=== PATIENT | female | born 1970 | race Caucasian/White ===

== ENCOUNTER 2019-05-27 12:44 | Outpatient (RCR) | payer MEDICARE, SELFPAY ==
[2019-05-27 13:10] LABS: Basophils Absolute Auto 0.1 K/mm3 (0.0-0.1); Basophils Percent Auto 0.7 % (0.2-1.2); Eosinophils Absolute Auto 0.4 K/mm3 (0-0.3); Eosinophils Percent Auto 3.1 % (0-4.4); Hematocrit 38.8 % (37.0-47.0); Hemoglobin 12.4 g/dL (12.0-15.0); Immature Granulocyte Absolute 0.03 K/mm3 (0.00-0.031); Immature Granulocyte Percent A 0.3 % (0-0.5); Lymphocytes Absolute Auto 5.64 K/mm3 (0.9-3.2); Lymphocytes Percent Auto 49.6 % (18.3-44.2); Mean Corpuscular Hemoglobin 32.6 pg (26-34); Mean Corpuscular Volume 102.1 fl (80-100); Mean Platelet Volume 9.8 fl (7.4-10.4); Monocytes Absolute Auto 0.7 K/mm3 (0.1-0.6); Neutrophils Absolute Auto 4.6 K/mm3 (1.3-6.7); Neutrophils Percent Auto 40.3 % (45.5-73.1); Platelet Count Result 413 k/mm3 (150-375); Red Cell Distribution Width 13.2 % (11.5-14.5); White Blood Count 11.4 K/mm3 (4.5-10.0)
== END 2019-08-25 23:59 | disposition home or self-care (01) ==
LOC: ANHLAB 12:44
PROVIDERS: PCP Family Medicine; Visit Provider Internal Medicine Medical Oncology
DX: D59.1 Other autoimmune hemolytic anemias (principal)
CPT/HCPCS: 36415; 85025

== ENCOUNTER 2020-08-01 10:36 | Outpatient (CLI) | payer MEDICARE, SELFPAY ==
[2020-08-01 11:15] LABS: Basophils Absolute Auto 0.1 K/mm3 (0.0-0.1); Basophils Percent Auto 0.7 % (0.2-1.2); Eosinophils Absolute Auto 0.6 K/mm3 (0-0.3); Eosinophils Percent Auto 5.6 % (0-4.4); Hematocrit 38.9 % (37.0-47.0); Hemoglobin 12.3 g/dL (12.0-15.0); Immature Granulocyte Absolute 0.03 K/mm3 (0.00-0.031); Immature Granulocyte Percent A 0.3 % (0-0.5); Lymphocytes Absolute Auto 4.51 K/mm3 (0.9-3.2); Lymphocytes Percent Auto 41.8 % (18.3-44.2); Mean Corpuscular HGB Conc 31.6 g/dl (32-36); Mean Corpuscular Hemoglobin 31.1 pg (26-34); Mean Corpuscular Volume 98.5 fl (80-100); Mean Platelet Volume 9.8 fl (7.4-10.4); Monocytes Absolute Auto 0.7 K/mm3 (0.1-0.6); Monocytes Percent Auto 6.5 % (2.6-8.5); Neutrophils Absolute Auto 4.9 K/mm3 (1.3-6.7); Neutrophils Percent Auto 45.1 % (45.5-73.1); Platelet Count Result 391 k/mm3 (150-375); Red Blood Count 3.95 M/mm3 (4.2-5.4); Red Cell Distribution Width 13.2 % (11.5-14.5); White Blood Count 10.8 K/mm3 (4.5-10.0)
[2020-08-01 11:28] LABS: Alanine Aminotransferase 29 U/L (4-35); Albumin Level 4.3 g/dL (3.5-5.1); Alkaline Phosphatase 112 U/L (38-126); Anion Gap 3 mmol/L (8-16); Aspartate Amino Transferase 28 U/L (14-36); Bilirubin,Total 0.3 mg/dL (0.2-1.3); Blood Urea Nitrogen 18 mg/dL (7-17); Calcium 9.4 mg/dL (8.4-10.2); Carbon Dioxide 36 mmol/L (22-30); Chloride 102 mmol/L (98-107); Cholesterol 194 mg/dL (0-200); Estimated Glomerular Filt Rate > 60; Glucose 109 mg/dL (65-105); HDL Direct 51 mg/dL; Sodium 141 mmol/L (137-145); Triglycerides 135 mg/dL (<150)
[2020-08-01 11:36] LABS: Creatinine Urine 159.9 mg/dL
[2020-08-01 11:39] LABS: LDL Cholesterol Direct 115 mg/dL
[2020-08-01 11:40] LABS: MALB Creatinine Ratio 5.1 mg/g (0-30); Microalbumin Urine Random 8.2 mg/L (0-16.7)
[2020-08-01 11:59] LABS: Total Triiodothyronine (T3) 1.13 NG/ML (0.97-1.69)
[2020-08-01 12:12] LABS: Free T4 Free Thyroxine 0.78 ng/mL (0.78-2.19); Vitamin D 25 Hydroxy 31.2 ng/mL
[2020-08-01 12:33] LABS: Folic Acid 4.9 ng/mL (2.76->20)
== END 2020-08-01 10:37 | disposition home or self-care (01) ==
LOC: ANHLAB 10:42
PROVIDERS: PCP Family Medicine; Visit Provider Nurse Practitioner
DX: D51.9 Vitamin B12 deficiency anemia, unspecified (principal); E03.9 Hypothyroidism, unspecified; E55.9 Vitamin D deficiency, unspecified; R20.2 Paresthesia of skin; I10 Essential (primary) hypertension; Z00.00 Encounter for general adult medical examination without abnormal findings
CPT/HCPCS: 36415; 80053; 80061; 82043; 82306; 82607; 82746; 84439; 84443; 84480; 85025

== ENCOUNTER 2020-12-12 13:01 | Outpatient (CLI) | payer MEDICARE, MEDICAID, SELFPAY ==
[2020-12-12 13:32] LABS: Uric Acid 5.9 mg/dL (2.5-7.5)
== END 2020-12-12 13:02 | disposition home or self-care (01) ==
PROVIDERS: PCP Family Medicine; Visit Provider Nurse Practitioner Family
DX: M10.9 Gout, unspecified (principal)
CPT/HCPCS: 36415; 84550

== ENCOUNTER 2024-02-11 15:23 | Emergency (ER) | payer OTHER, SELFPAY ==
[2024-02-11] VITALS (14 sets, daily range): BP systolic 116–152; BP diastolic 72–74; PULSE 68–110; RESP 12–23; TEMP 36.7; O2SAT 94–100
[2024-02-11 15:53] LABS: Basophils Absolute Auto 0.1 K/mm3 (0.0-0.1); Basophils Percent Auto 0.6 % (0.2-1.2); Eosinophils Absolute Auto 0.2 K/mm3 (0-0.3); Eosinophils Percent Auto 1.7 % (0-4.4); Hematocrit 30.3 % (37.0-47.0); Hemoglobin 8.8 g/dL (12.0-15.0); Immature Granulocyte Absolute 0.03 K/mm3 (0.00-0.031); Immature Granulocyte Percent A 0.2 % (0-0.5); Lymphocytes Absolute Auto 5.63 K/mm3 (0.9-3.2); Mean Corpuscular Hemoglobin 20.7 pg (26-34); Mean Corpuscular Volume 71.3 fl (80-100); Mean Platelet Volume 9.3 fl (7.4-10.4); Monocytes Percent Auto 7.1 % (2.6-8.5); Neutrophils Absolute Auto 7.1 K/mm3 (1.3-6.7); Neutrophils Percent Auto 50.4 % (45.5-73.1); Nucleated Red Blood Cells Perc 0.1 % (0.0-0.2); Platelet Count Result 660 k/mm3 (150-375); Red Blood Count 4.25 M/mm3 (4.2-5.4); Red Cell Distribution Width 19.7 % (11.5-14.5); White Blood Count 14.1 K/mm3 (4.5-10.0)
[2024-02-11 16:03] LABS: Alanine Aminotransferase 21 U/L (6-35); Albumin Level 4.7 g/dL (3.5-5.1); Alkaline Phosphatase 89 U/L (38-126); Anion Gap 10 mmol/L (4-12); Aspartate Amino Transferase 41 U/L (14-36); Bilirubin,Total 0.6 mg/dL (0.2-1.3); Blood Urea Nitrogen 14 mg/dL (7-17); Calcium 9.4 mg/dL (8.4-10.2); Carbon Dioxide 29 mmol/L (22-30); Chloride 98 mmol/L (98-107); Estimated CRCL calculation 100 ml/min; Estimated Glomerular Filt Rate > 60; Glucose 97 mg/dL (65-110); Potassium 3.4 mmol/L (3.4-5.0); Sodium 137 mmol/L (137-145)
[2024-02-11 16:10] LABS: Prothrombin Time 13.6 Seconds (11.1-14.7)
[2024-02-11 16:11] LABS: Partial Thromboplastin Time 28.4 Seconds (22.3-36.8)
[2024-02-11 16:19] LABS: Platelet Estimate Increased (Adequate); Schistocytes None Seen
[2024-02-11 16:20] LABS: Anisocytosis 3+; Hypochromasia 1+
--- NOTE | 2024-02-11 18:23 | ED.ABDPAIN ---
HPI - Abdominal Pain General Chief Complaint: Abdominal Pain Stated Complaint: bleeding from butt Time Seen by Provider: 02/11/24 15:38 History of Present Illness HPI narrative: Patient is a 54-year-old female who presents ER with rectal bleeding. Reports she has had diarrhea for 2 weeks and has been having small clots of blood come out with the loose stool. Reports chronic anemia. Reports she has intermittent bouts of bloody diarrhea over last several years. She has never been diagnosed with inflammatory bowel disease. She reports she is overdue for a colonoscopy. No fevers or chills. No abdominal pain. Referred here by her PCP. Related Data Allergies Allergy/AdvReac Type Severity Reaction Status Date / Time levofloxacin Allergy Unknown Palpitation Verified 02/11/24 15:38 s Review of Systems Review of Systems: All systems reviewed & are unremarkable except as noted in HPI and below Constitutional: Constitutional: Reports no additional constitutional complaints ENT: Reports system reviewed and no additional complaints, except as documented Cardiovascular: Cardiovascular: Reports no additional cardiovascular complaints Respiratory: Respiratory: Reports no additional respiratory complaints Gastrointestinal: Gastrointestinal: Reports abdominal pain, Reports diarrhea, Denies nausea and Denies vomiting PMFSH Past Medical History Medical History (Updated 02/11/24 @ 18:24 by Huan Downs MD) Anemia Anxiety Autoimmune hemolytic anemia Depression DVT (deep venous thrombosis) GERD (gastroesophageal reflux disease) History of rectal polyps History of vertebral fracture HTN (hypertension) Hypothyroidism Surgical History Surgical History (Updated 03/29/19 @ 16:30 by Abhijit Frye) History of cholecystectomy History of hysterectomy History of skin graft History of splenectomy History of tonsillectomy Family History Family History (Updated 10/24/15 @ 11:57 by DOCTOR UNKNOWN) Other Cerebrovascular accident Diabetes mellitus Family history of allergic disorder Family history of cardiovascular disease Family history of primary malignant neoplasm of liver Hypertension Social History Social History (Updated 03/29/19 @ 16:29 by Abhijit Frye) Smoking status: Heavy tobacco smoker Second hand tobacco smoke exposure: Yes Alcohol intake: current Exam Narrative: GENERAL: Well-appearing, well-nourished, and in no acute distress. HEAD: Normocephalic, atraumatic. ENT: Mucous membranes moist. NECK: Supple. CHEST: Clear to auscultation. No respiratory distress. HEART: Regular rate and rhythm. Normal peripheral pulses. ABDOMEN: Soft, nontender, nondistended. EXTREMITIES: Normal range of motion. No edema. SKIN: Warm, dry, no rash. NEURO: N Alert and oriented x3. PSYCH: Normal mood and affect. Course Course Emergency Course: Patient resting comfortably. Discussed with GI. Discharge home with oral antibiotics. Will need follow-up. Vital Signs Vital signs: Vital Signs Temperature 98.1 F 02/11/24 15:29 Pulse Rate 96 02/11/24 15:29 Respiratory Rate 16 02/11/24 15:29 Blood Pressure 152/73 H 02/11/24 15:29 Pulse Oximetry 97 02/11/24 15:29 Oxygen Delivery Room Air 02/11/24 15:29 Temperature 98.1 F 02/11/24 15:29 Pulse Rate 91 02/11/24 18:57 Respiratory Rate 18 02/11/24 18:57 Blood Pressure 116/72 02/11/24 18:57 Pulse Oximetry 100 02/11/24 18:57 Oxygen Delivery Room Air 02/11/24 15:29 MDM - Abdominal Pain Lab Data 02/11/24 15:45 02/11/24 15:45 Labs: Lab Results 02/11/24 Range/Units 15:45 WBC 14.1 H (4.5-10.0) K/mm3 RBC 4.25 (4.2-5.4) M/mm3 Hgb 8.8 L D (12.0-15.0) g/dL Hct 30.3 L (37.0-47.0) % MCV 71.3 L (80-100) fl MCH 20.7 L (26-34) pg MCHC 29.0 L (32-36) g/dl RDW 19.7 H (11.5-14.5) % Plt Count 660 H D (150-375) k/mm3 MPV 9.3 (7.4-10.4) fl Immature Gran
== END 2024-02-11 19:06 | disposition home or self-care (01) ==
PROVIDERS: Emergency Provider Emergency Medicine; PCP Family Medicine
DX: K52.9 Noninfective gastroenteritis and colitis, unspecified (principal); I10 Essential (primary) hypertension; E03.9 Hypothyroidism, unspecified; K21.9 Gastro-esophageal reflux disease without esophagitis; D59.10 Autoimmune hemolytic anemia, unspecified; F17.200 Nicotine dependence, unspecified, uncomplicated; Z87.19 Personal history of other diseases of the digestive system; Z86.718 Personal history of other venous thrombosis and embolism; Z90.49 Acquired absence of other specified parts of digestive tract; Z90.710 Acquired absence of both cervix and uterus; Z90.81 Acquired absence of spleen
CPT/HCPCS: 36415; 80053; 81479; 85025; 85610; 85730; 86850; 86860; 86870; 86880; 86900; 86901; 86902; 86978; 99283

== ENCOUNTER 2024-03-16 15:45 | Inpatient (IN) | payer OTHER, SELFPAY ==
--- NOTE | ~2024-03-16 | XR_ITS ---
EXAMINATION: XR chest 1V portable DATE: 03/18/2024 10:17 INDICATION: Leukocytosis. TECHNIQUE: A single frontal view of the chest was obtained. COMPARISON: Chest 2 views 08/07/2017, CT abdomen and pelvis 03/17/2024 FINDINGS: There is a chronic nodule in left lung lower lobe, likely benign. There is no pneumonia, pl eural effusion, or pneumothorax. The heart size is normal. IMPRESSION: 1. No acute cardiopulmonary disease. Reviewed, dictated and finalized at location B.
--- NOTE | ~2024-03-16 | CT_ITS ---
EXAMINATION: CT abdomen pelvis w con DATE: 03/17/2024 15:00 INDICATION: Gastrointestinal hemorrhage. TECHNIQUE: Computed tomography (CT) of the abdomen and pelvis was performed with 100 mL Omnipaque 350 intravenous contrast. Automated exposure control and iterative reconstruction technique were employe d. The dose-length product was 1497.67 mGy-cm. COMPARISON: CT abdomen and pelvis 03/29/2019 FINDINGS: The visualized portions of the lung bases demonstrate mild atelectasis. There is a 15 mm no dule with central calcification in left lower lobe that previously measured 11 mm, likely benign. No pleural effusion. The heart size is normal. No pericardial effusion. There is a small sliding hiatal hernia. The liver is normal. There are changes of cholecystectomy. There are changes of splenectomy. The pancreas and adrenal glands are normal. There are cysts in the kidneys measuring up to 8 mm on th e right. There are no dilated loops of bowel. The appendix is normal. There are no pathologically enl arged lymph nodes. There is no free intraperitoneal fluid. There is mild lumbar spondylosis. Lumbar d extroscoliosis is noted. IMPRESSION: 1. Small sliding hiatal hernia. Reviewed, dictated and finalized at location B.
[2024-03-16 15:54] VITALS: BP 134/66; PULSE 98; RESP 16; TEMP 37.1; O2SAT 100
[2024-03-16 19:05] LABS: Basophils Absolute Auto 0.1 K/mm3 (0.0-0.1); Basophils Percent Auto 0.5 % (0.2-1.2); Eosinophils Absolute Auto 0.3 K/mm3 (0-0.3); Eosinophils Percent Auto 2.1 % (0-4.4); Immature Granulocyte Absolute 0.04 K/mm3 (0.00-0.031); Immature Granulocyte Percent A 0.2 % (0-0.5); Lymphocytes Absolute Auto 7.62 K/mm3 (0.9-3.2); Lymphocytes Percent Auto 46.5 % (18.3-44.2); Mean Corpuscular HGB Conc 27.9 g/dl (32-36); Mean Corpuscular Hemoglobin 19.4 pg (26-34); Mean Corpuscular Volume 69.4 fl (80-100); Mean Platelet Volume 9.2 fl (7.4-10.4); Monocytes Absolute Auto 1.1 K/mm3 (0.1-0.6); Neutrophils Absolute Auto 7.1 K/mm3 (1.3-6.7); Neutrophils Percent Auto 43.7 % (45.5-73.1); Nucleated Red Blood Cells Perc 0.4 % (0.0-0.2); Platelet Count Result 726 k/mm3 (150-375); Red Blood Count 3.46 M/mm3 (4.2-5.4); White Blood Count 16.4 K/mm3 (4.5-10.0)
[2024-03-16 19:21] LABS: Alanine Aminotransferase 20 U/L (6-35); Albumin Level 4.3 g/dL (3.5-5.1); Alkaline Phosphatase 114 U/L (38-126); Anion Gap 11 mmol/L (4-12); Aspartate Amino Transferase 30 U/L (14-36); Bilirubin,Total 0.3 mg/dL (0.2-1.3); Blood Urea Nitrogen 16 mg/dL (7-17); Calcium 8.7 mg/dL (8.4-10.2); Carbon Dioxide 29 mmol/L (22-30); Chloride 98 mmol/L (98-107); Estimated CRCL calculation 100 ml/min; Estimated Glomerular Filt Rate > 60; Glucose 96 mg/dL (65-110); Potassium 2.9 mmol/L (3.4-5.0); Sodium 138 mmol/L (137-145)
[2024-03-16 19:32] LABS: Hemoglobin 6.7 g/dL (12.0-15.0)
--- NOTE | 2024-03-16 19:32 | ED_ITS ---
HPI - Recheck/Abnormal Lab/Rx General Chief Complaint: Recheck/Abnormal Lab/Rx Stated Complaint: abnormal labs Time Seen by Provider: 03/16/24 19:21 Source: patient Mode of arrival: ambulatory Limitations: no limitations History of Present Illness HPI narrative: This is a 54-year-old female that presents to the emergency department for abnormal outpatient blood work. Reports she was called and told her hemoglobin is low and she should go to the ER. She has known history of autoimmune hemolytic anemia. Is not currently following with a workers compensation defense attorney for this as she was in remission. Reports she had an episode of GI bleeding last month. No current bleeding. Related Data Allergies Allergy/AdvReac Type Severity Reaction Status Date / Time levofloxacin Allergy Unknown Palpitation Verified 03/16/24 15:45 s Review of Systems Review of Systems: CONSTITUTIONAL: Denies fever RESPIRATORY: Reports dyspnea. All systems reviewed & are unremarkable except as noted in HPI and below PMFSH Past Medical History Medical History (Updated 03/16/24 @ 21:03 by Magdalena Davis PA-C) Anemia Anxiety Autoimmune hemolytic anemia Depression DVT (deep venous thrombosis) GERD (gastroesophageal reflux disease) History of rectal polyps History of vertebral fracture HTN (hypertension) Hypothyroidism Surgical History Surgical History (Updated 03/29/19 @ 16:30 by Abhijit Frye) History of cholecystectomy History of hysterectomy History of skin graft History of splenectomy History of tonsillectomy Family History Family History (Updated 10/24/15 @ 11:57 by DOCTOR UNKNOWN) Other Cerebrovascular accident Diabetes mellitus Family history of allergic disorder Family history of cardiovascular disease Family history of primary malignant neoplasm of liver Hypertension Social History Social History (Updated 03/29/19 @ 16:29 by Abhijit Frye) Smoking status: Heavy tobacco smoker Second hand tobacco smoke exposure: Yes Alcohol intake: current Exam Narrative: GENERAL: Well-appearing, well-nourished, and in no acute distress. HEAD: Normocephalic, atraumatic. EYES: EOMI. CHEST: Clear to auscultation. No respiratory distress. No wheezes rales or rhonchi HEART: Regular rate and rhythm. No murmur heard. Normal peripheral pulses. EXTREMITIES: Normal range of motion. No edema. SKIN: Warm, dry, no rash. NEURO: No focal deficits. Alert and oriented x3. PSYCH: Normal mood and affect Course Course Emergency Course: Patient updated on her workup and agrees with plan of care Consultations Consultation #1: Spoke with patient's PCP about her workup. Agrees with transfusion in the ER and further outpatient follow up Date: 03/16/24 Vital Signs Vital signs: Vital Signs Temperature 98.8 F 03/16/24 15:54 Pulse Rate 98 03/16/24 15:54 Respiratory Rate 16 03/16/24 15:54 Blood Pressure 134/66 03/16/24 15:54 Pulse Oximetry 100 03/16/24 15:54 Oxygen Delivery Room Air 03/16/24 15:54 Temperature 97.4 F L 03/16/24 23:19 Pulse Rate 81 03/16/24 23:19 Respiratory Rate 18 03/16/24 23:19 Blood Pressure 110/64 03/16/24 23:19 Pulse Oximetry 97 03/16/24 23:19 Oxygen Delivery Room Air 03/16/24 15:54 MDM - Recheck/Abnormal Lab/Rx MDM Narrative Medical decision making narrative: Patient presents to the emergency department for abnormal outpatient blood work. Reports known history of anemia. Her vitals are stable. Hemoglobin is 6.7. No active bleeding. Known history of autoimmune hemolytic anemia. Spoke with patient's PCP about her workup. Agrees with transfusion in the ER and further outpatient follow up with hematology. She was given warnings to return to the ER Lab Data Attestation: I reviewed the patient's lab results. 03/16/24 18:55 03/16/24 18:55 Labs: Lab Results 03/16/24 Range/Units 18:55 WBC 16.4 H (4.5-10.0) K/mm3 RBC 3.46 L (4.2-5.4) M/mm3 Hgb 6.7 L* (12.0-15.0) g/dL Hct 24.0 L (37.0-47.0) % MCV 69.4 L (80-100) fl MCH 19.4 L (26-34) pg MCHC 27.9 L (32-36) g/dl RDW 19.0 H (11.5-14.5) % Plt Count 726 H (150-375) k/mm3 MPV 9.2 (7.4-10.4) fl Immature Gran % (Auto) 0.2 (0-0.5) % Neut % (Auto) 43.7 L (45.5-73.1) % Lymph % (Auto) 46.5 H (18.3-44.2) % Nicholas % (Auto) 7.0 (2.6-8.5) % Eos % (Auto) 2.1 (0-4.4) % Baso % (Auto) 0.5 (0.2-1.2) % Lymph # (Auto) 7.62 H (0.9-3.2) K/mm3 Nicholas # (Auto) 1.1 H (0.1-0.6) K/mm3 Eos # (Auto) 0.3 (0-0.3) K/mm3 Baso # (Auto) 0.1 (0.0-0.1) K/mm3 Abs Immat Gran (auto) 0.04 H (0.00-0.031) K/mm3 Absolute Neuts (auto) 7.1 H (1.3-6.7) K/mm3 Absolute Nucleated RBC 0.060 H (0.0-0.012) K/mm3 Nucleated RBC % 0.4 H (0.0-0.2) % Atypical Lymphocytes Present Platelet Estimate Increased (Adequate) Hypochromasia 1+ Microcytosis 1+ (NORMAL) Target Cells 2+ Ovalocytes 1+ Schistocytes None seen Sodium 138 (137-145) mmol/L Potassium 2.9 L (3.4-5.0) mmol/L Chloride 98 (98-107) mmol/L Carbon Dioxide 29 (22-30) mmol/L Anion Gap 11 (4-12) mmol/L BUN 16 (7-17) mg/dL Creatinine 0.70 (0.7-1.0) mg/dL Estim Creat Clear Calc 100 ml/min Estimated GFR > 60 (59 - ) Glucose 96 (65-110) mg/dL Calcium 8.7 (8.4-10.2) mg/dL Magnesium 2.2 (1.6-2.3) mg/dL Total Bilirubin 0.3 (0.2-1.3) mg/dL AST 30 (14-36) U/L ALT 20 (6-35) U/L Alkaline Phosphatase 114 (38-126) U/L Total Protein 8.0 (6.3-8.2) g/dL Albumin 4.3 (3.5-5.1) g/dL Blood Type O Positive Antibody Screen Positive Antibody Identification Pending Antigen Identification Pending DISHA, IgG Interpret 4+ DISHA, Poly Interpret TNP DISHA, Complement Interp Pending Enhanced Crossmatch See Detail Critical Care Time Critical Care Time Critical Care Time: No Discharge Plan Discharge Clinical Impression: Anemia Qualifiers: Anemia type: unspecified type Qualified Code(s): D64.9 - Anemia, unspecified Patient Disposition: Home, Self-Care Condition: Improved Instructions: Anemia (ED) Additional Instructions: Return to the emergency department if you experience fever, chest pain, shortne ss of breath, weakness, numbness, or any other symptoms that are concerning to you. Follow up with primary care doctor Prescriptions: No Action diazepam 5 mg tablet 5 mg PO HS PRN (Reason: pain, moderate) Qty: 10 0RF lidocaine 5 % adhesive patch,medicated 1 patch TOPICAL DAILY 30 Days Qty: 30 0RF Rx Instructions: leave on most painful area for up to 12 hrs amoxicillin-pot clavulanate 875-125 mg tablet 1 tablet PO Q12H Qty: 20 0RF hydrocodone-acetaminophen [[place]] 5-325 mg tablet 1 tablet PO Q6H PRN (Reason: pain) Qty: 10 0RF ondansetron HCl [Zofran] 4 mg tablet 4 mg PO Q8H PRN (Reason: nausea and vomiting) Qty: 10 0RF Follow-up/Referrals: Jcarlos Mott MD [Physician] - Glen Erwin MD [Primary Care Provider] -
[2024-03-16 19:33] LABS: Atypical Lymphocytes Present; Hypochromasia 1+; Microcytosis 1+ (NORMAL); Ovalocytes 1+; Platelet Estimate Increased (Adequate); Schistocytes None Seen; Target Cells 2+
[2024-03-16] MEDS: POTASSIUM CHLORIDE 20 MEQ ER TABLET 40 MEQ PO (19:47)
[2024-03-16 21:19] LABS: Magnesium 2.2 mg/dL (1.6-2.3)
[2024-03-16] MEDS: SODIUM CHLORIDE 0.9% IV 250 ML 30 ML IV CONT (22:47)
[2024-03-16 23:19] VITALS: BP 110/64; PULSE 81; RESP 18; TEMP 36.3; O2SAT 97
[2024-03-16 23:30] VITALS: BP 114/67; PULSE 75; RESP 14; O2SAT 98
[2024-03-17] VITALS (8 sets, daily range): BP systolic 104–163; BP diastolic 52–85; PULSE 66–97; RESP 16–20; TEMP 36.9–37.5; O2SAT 96–100; BMI 41.1
[2024-03-17 03:43] LABS: Lactate Dehydrogenase 143 U/L (120-246)
[2024-03-17 04:19] LABS: Iron 20 ug/dL (37-170)
[2024-03-17 04:29] LABS: Percent Iron Saturation 5 % (20-50)
[2024-03-17 04:50] LABS: Folic Acid 13.9 ng/mL (2.76->20)
--- NOTE | 2024-03-17 05:10 | ADMGEN ---
This patient, Lisa Alex, was admitted to 3 [facility] Surg Room 316-02. Patient/family oriented to hospital policies and general routines including ID bracelet, bed and alarms, visiting hours, pain management, procedures, bathroom and other care routines, personal items, smoking policy, room service/diet, and visiting hours. Information on how to activate the Rapid Response Team has been discussed. Patient/Family are encouraged to report perceived risks to care and to ask questions if they do not understand what they are told or what they should do.
[2024-03-17 07:09] LABS: Ferritin 7.14 ng/mL (11.1-264)
[2024-03-17] MEDS: IRON SUCROSE COMPLEX 400 MG, IRON SUCROSE COMPLEX 100 MG in SODIUM CHLORIDE 0.9% IV 250 ML 78.57 MG IVPB (08:42)
--- NOTE | 2024-03-17 12:19 | PM.IMHP ---
H&P: HPI History of Present Illness Date/Time: 03/17/24 12:19 Chief Complaint: referred to the ER by PCP due to low Hb on labs Narrative: 54 old female past medical history of autoimmune hemolytic anemia, hypothyroidism and hypertension who presented to the ER on recommendation of her primary care physician on account of low blood level. Patient reported she has been having generalized weakness and worsening exertional dyspnea over the [place]. She also reported bloody stool. Denies any chest pain, no diarrhea, no dysuria no focal symptoms no loss of consciousness. Follow with her primary care physician who obtained some blood work and Ariane back yesterday to present to the ER due to low blood level. ER evaluation interval for vital signs stable within normal limits, laparotomy for WBC 16.4, hemoglobin 6.7, platelets 7 2 6, potassium 2.9, ferritin 7.14, isat 5. Blood was typed and cross-matched however patient wanted to have multiple antibodies. Awaiting compatible blood product for transfusion hematology consulted Review of Systems Review of Systems: All other systems reviewed and negative except as noted in the history above PMFSH Past Medical History Medical History (Updated 03/17/24 @ 13:24 by Carmenza Major MD) Anemia Anxiety Autoimmune hemolytic anemia Depression DVT (deep venous thrombosis) GERD (gastroesophageal reflux disease) History of rectal polyps History of vertebral fracture HTN (hypertension) Hypothyroidism Surgical History Surgical History (Updated 03/29/19 @ 16:30 by Abhijit Frye) History of cholecystectomy History of hysterectomy History of skin graft History of splenectomy History of tonsillectomy Family History Family History (Updated 03/17/24 @ 05:16 by Angela Mills RN) Mother Diabetes mellitus Cerebrovascular accident Family history of allergic disorder Family history of cardiovascular disease Family history of primary malignant neoplasm of liver Other Hypertension Social History Social History (Updated 03/29/19 @ 16:29 by Abhijit Frye) Smoking packs per day: 1 Smoking cigarettes per day: 20.0 Years smoked: 35 Smoking pack-years: 35.00 Smoking status: Former smoker Tobacco type: cigarettes Second hand tobacco smoke exposure: Yes Smoking end date: 07/18/19 Alcohol intake: never Substance use: former Substance use type: marijuana Do You Feel Safe in your Home?: Yes Lack of Transportation: No Lack of Food: Never True Current Housing: I Have Housing Concerned About Future Housing: No Difficulty Paying Gas/Electric Bills: No Difficulty Paying for Meds: No Currently Unemployed: No Education: High School Diploma/GED Difficulty w/ Childcare or Family Care: No Spiritual care concerns: No Meds Home Medications and Allergies Home Medications Medication Instructions Recorded Confirmed Type alprazolam 0.25 mg tablet 0.25 mg PO BID PRN Anxiety 03/17/24 03/17/24 History dulaglutide 1.5 mg/0.5 mL 1.5 mg subcut WEEKLY 03/17/24 03/17/24 History subcutaneous pen injector (Trulicity) hydrochlorothiazide 12.5 mg tablet 12.5 mg PO DAILY 03/17/24 03/17/24 History levothyroxine 75 mcg tablet 75 mcg PO DAILY 03/17/24 03/17/24 History lisinopril 10 mg tablet 10 mg PO DAILY 03/17/24 03/17/24 History omeprazole 40 mg capsule,delayed 40 mg PO DAILY 03/17/24 03/17/24 History release sertraline 100 mg tablet 100 mg PO DAILY 03/17/24 03/17/24 History Allergies Allergy/AdvReac Type Severity Reaction Status Date / Time levofloxacin Allergy Unknown Palpitation Verified 03/16/24 15:45 s Vital Signs Vital Signs - 24 hr 03/16/24 15:54 03/16/24 23:19 03/16/24 23:30 Temperature 98.8 F 97.4 F L Pulse Rate 98 81 75 Respiratory Rate 16 18 14 Blood Pressure 134/66 110/64 114/67 Pulse Oximetry 100 97 98 Oxygen Delivery Room Air 03/17/24 00:17 03/17/24 02:00 03/17/24 02:30 Temperature Pulse Rate 97 78 80 Respiratory Rate 18 16 16 Blood Pressure 104/85 Pulse Oximetry 96 97 96 Oxygen Delivery 03/17/24 03:25 03/17/24 04:39 03/17/24 05:06 Temperature 98.6 F Pulse Rate 76 73 66 Respiratory Rate 17 18 20 Blood Pressure 144/68 H 125/68 117/52 L Pulse Oximetry 100 97 98 Oxygen Delivery 03/17/24 05:32 Temperature Pulse Rate Respiratory Rate Blood Pressure Pulse Oximetry Oxygen Delivery Room Air Exam Narrative: General: alert and comfortable Eyes: EOMI, PERRLA ENNT External ears normal, Neck is supple, no masses, Respiratory systems: Clear to auscultation Cardiovascular S1, S2, normal rhythm, no murmur, rub, or gallop; no thrill or palpable murmurs on palpation. Gastrointestinal: soft, non-tender, and non-distended abdomen with no masses; BS present Skin: no rash, lesions, ulcerations, subcutaneous nodules or induration Musculoskeletal: no abnormality and no tenderness, normal ROM Neurologic: Alert and oriented x3, non focal Mental Status Exam: normal affect H&P: Results Labs Labs: Short CBC 03/16/24 Range/Units 18:55 WBC 16.4 H (4.5-10.0) K/mm3 Hgb 6.7 L* (12.0-15.0) g/dL Hct 24.0 L (37.0-47.0) % Plt Count 726 H (150-375) k/mm3 BMP 03/16/24 18:55 Sodium 138 Potassium 2.9 L Chloride 98 Carbon Dioxide 29 BUN 16 Creatinine 0.70 Glucose 96 Calcium 8.7 Liver Function 03/16/24 Range/Units 18:55 Total Bilirubin 0.3 (0.2-1.3) mg/dL AST 30 (14-36) U/L ALT 20 (6-35) U/L Alkaline Phosphatase 114 (38-126) U/L Albumin 4.3 (3.5-5.1) g/dL Assessment and Plan Assessment and plan (1) Anemia: Qualifiers: Anemia type: unspecified type Qualified Code(s): D64.9 - Anemia, unspecified Code(s): D64.9 - Anemia, unspecified Status: Acute (2) Autoimmune hemolytic anemia: Code(s): D59.1 - Other autoimmune hemolytic anemias Status: Acute (3) Hypothyroidism: Code(s): E03.9 - Hypothyroidism, unspecified Status: Acute (4) HTN (hypertension): Code(s): I10 - Essential (primary) hypertension Status: Acute (5) Anxiety: Code(s): F41.9 - Anxiety disorder, unspecified Status: Acute Plan Anemia Patient has a history of autoimmune hemolytic anemia Noted that she was to steroids, 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 Also noted bloody stool. Patient relative to other blood products will have in-hospital Start prednisone Oncology consulted Genital degenerative. Iron deficiency Ferritin 7.14, with platelets 726, i-STAT 5 Note a history of bloody stool. Start iron replacement for 4 months 1000. Possible GI bleed Patient noted bloody stool Along with iron deficient anemia GI bleed highly suspected. Stop Protonix, CT abdomen and pelvis ordered. GI consulted. Hypothyroidism Continue home medications. Hypertension next item medication clinical course /anxiety continue medications. DVT prophylaxis SCDs no anticoagulation due to GI bleed. Patient is full code Surrogate decision maker is sister, Alvaroradha Osorio
[2024-03-17] MEDS: predniSONE 40 MG, predniSONE 10 MG 50 MG PO (12:56)
[2024-03-17] MEDS: PANTOPRAZOLE 40 MG TABLET PO (16:43)
[2024-03-17] MEDS: BISACODYL 5 MG TABLET EC 10 MG PO (16:43)
--- NOTE | 2024-03-17 17:13 | WPDGICN ---
Assessment and Plan Assessment and plan (1) Autoimmune hemolytic anemia: Code(s): D59.1 - Other autoimmune hemolytic anemias Status: Acute (2) Iron deficiency anemia: Code(s): D50.9 - Iron deficiency anemia, unspecified Status: Acute Assessment and Plan: The patient has mixed anemia, previously known to have an autoimmune component, currently awaiting evaluation by Hematology to address safety of blood transfusion given her antibody status. Iron deficiency certainly warrants investigation, therefore will prep her for colonoscopy and EGD tomorrow. Hopefully she will receive at least 1 unit of packed red blood cells to be in better condition for the above-mentioned procedures. Orders written for preparation. GI Consult Note Consult date/time: 03/17/24 17:13 HPI: Lisa Alex is a 54 year old female With a history of autoimmune hemolytic anemia, status post splenectomy many years ago after which she has not been followed closely by Hematology. She obtained some laboratory workup yesterday which showed severe anemia, and was found to be iron deficient with an iron saturation of 5%. She has never had melena or hematochezia, however she does describe frequent bright red blood per rectum sometimes evidencing squirting in the toilet. Her last colonoscopy was more than 10 years ago. Denies weight loss, abdominal pain, systemic symptoms, but has been feeling fatigued and weak over the past few weeks. [facility] Past Medical History Medical History (Updated 03/17/24 @ 17:18 by Sharif Cox MD) Anemia Anxiety Autoimmune hemolytic anemia Depression DVT (deep venous thrombosis) GERD (gastroesophageal reflux disease) History of rectal polyps History of vertebral fracture HTN (hypertension) Hypothyroidism Surgical History Surgical History (Updated 03/29/19 @ 16:30 by Abhijit Frye) History of cholecystectomy History of hysterectomy History of skin graft History of splenectomy History of tonsillectomy Family History Family History (Updated 03/17/24 @ 05:16 by Angela Mills RN) Mother Diabetes mellitus Cerebrovascular accident Family history of allergic disorder Family history of cardiovascular disease Family history of primary malignant neoplasm of liver Other Hypertension Social History Social History (Updated 03/29/19 @ 16:29 by Abhijit Frye) Smoking packs per day: 1 Smoking cigarettes per day: 20.0 Years smoked: 35 Smoking pack-years: 35.00 Smoking status: Former smoker Tobacco type: cigarettes Second hand tobacco smoke exposure: Yes Smoking end date: 07/18/19 Alcohol intake: never Substance use: former Substance use type: marijuana Do You Feel Safe in your Home?: Yes Lack of Transportation: No Lack of Food: Never True Current Housing: I Have Housing Concerned About Future Housing: No Difficulty Paying Gas/Electric Bills: No Difficulty Paying for Meds: No Currently Unemployed: No Education: High School Diploma/GED Difficulty w/ Childcare or Family Care: No Spiritual care concerns: No Meds Home Medications and Allergies Home Medications Medication Instructions Recorded Confirmed Type alprazolam 0.25 mg tablet 0.25 mg PO BID PRN Anxiety 03/17/24 03/17/24 History dulaglutide 1.5 mg/0.5 mL 1.5 mg subcut WEEKLY 03/17/24 03/17/24 History subcutaneous pen injector (Trulicity) hydrochlorothiazide 12.5 mg tablet 12.5 mg PO DAILY 03/17/24 03/17/24 History levothyroxine 75 mcg tablet 75 mcg PO DAILY 03/17/24 03/17/24 History lisinopril 10 mg tablet 10 mg PO DAILY 03/17/24 03/17/24 History omeprazole 40 mg capsule,delayed 40 mg PO DAILY 03/17/24 03/17/24 History release sertraline 100 mg tablet 100 mg PO DAILY 03/17/24 03/17/24 History Allergies Allergy/AdvReac Type Severity Reaction Status Date / Time levofloxacin Allergy Unknown Palpitation Verified 03/16/24 15:45 s Vital Signs Vital Signs - 24 hr 03/16/24 23:19 03/16/24 23:30 03/17/24 00:17 Temperature 97.4 F L Pulse Rate 81 75 97 Respiratory Rate 18 14 18 Blood Pressure 110/64 114/67 104/85 Pulse Oximetry 97 98 96 Oxygen Delivery 03/17/24 02:00 03/17/24 02:30 03/17/24 03:25 Temperature Pulse Rate 78 80 76 Respiratory Rate 16 16 17 Blood Pressure 144/68 H Pulse Oximetry 97 96 100 Oxygen Delivery 03/17/24 04:39 03/17/24 05:06 03/17/24 05:32 Temperature 98.6 F Pulse Rate 73 66 Respiratory Rate 18 20 Blood Pressure 125/68 117/52 L Pulse Oximetry 97 98 Oxygen Delivery Room Air 03/17/24 14:00 Temperature 98.4 F Pulse Rate 78 Respiratory Rate 18 Blood Pressure 163/83 H Pulse Oximetry 98 Oxygen Delivery Exam Const: General: cooperative and healthy appearing Resp: Effort & Inspection: normal respiratory effort and able to speak in complete sentences Auscultation: clear to auscultation bilaterally Cardio: Rate: regular rate Rhythm: regular rhythm GI: Inspection: normal to inspection GI Palp: No No hepatosplenomegaly present Auscultation: normal bowel sounds Rectal Exam: deferred Skin: General skin exam: normal color Psych: Appearance: grossly normal Mental Status: mental status grossly normal Results Labs 03/16/24 18:55 03/16/24 18:55 Labs: Short CBC 03/16/24 Range/Units 18:55 WBC 16.4 H (4.5-10.0) K/mm3 Hgb 6.7 L* (12.0-15.0) g/dL Hct 24.0 L (37.0-47.0) % Plt Count 726 H (150-375) k/mm3 BMP 03/16/24 18:55 Sodium 138 Potassium 2.9 L Chloride 98 Carbon Dioxide 29 BUN 16 Creatinine 0.70 Glucose 96 Calcium 8.7 Liver Function 03/16/24 Range/Units 18:55 Total Bilirubin 0.3 (0.2-1.3) mg/dL AST 30 (14-36) U/L ALT 20 (6-35) U/L Alkaline Phosphatase 114 (38-126) U/L Albumin 4.3 (3.5-5.1) g/dL
[2024-03-17 18:21] LABS: Hematocrit 23.9 % (37.0-47.0)
[2024-03-17 18:26] LABS: Hemoglobin 6.9 g/dL (12.0-15.0)
--- NOTE | 2024-03-17 18:35 | PC.NURSE ---
This nurse told Dr. Major about pt hemoglobin going from 6.7 on 03/16/24 to 6.9 on 03/17/24. Hematology has not seen pt yet as of 1829 on 03/17/24 and has not received the 2 units of prbcs. pt received one bag of IV iron sucrose in the morning of 03/17/24. stated to have labs redrawn tomorrow morning. order is put in. awaiting other orders at this time.
--- NOTE | 2024-03-17 19:36 | PDONCCN ---
HPI - Date of Consult Date/Time: 03/17/24 19:36 Requesting Physician: Carmenza Major MD Primary Care Provider: Glen Erwin MD - Consult Narrative Reason for consult: Anemia Narrative: Lisa Alex is a 54 year old female with history of autoimmune hemolytic anemia status post splenectomy almost 10 years ago and was seen by Dr. Richard Pham. She was treated with steroids and then Rituxan ask for hemolytic anemia. Her hemolytic anemia has been in remission since 2017. Patient also has a history of hypertension and hypothyroidism came into the hospital with complain of tiredness and fatigue with dyspnea on exertion and generalized weakness. Patient also complain of bloody stool. Labs showed hemoglobin of 6.7. Iron studies showed serum iron of 20 with saturation of 5%. She received iron infusion today. Review of Systems - Review of Systems All systems reviewed & are unremarkable except as noted in HPI and [facility] Medical History: Medical History (Last Updated 03/17/24 @ 13:24 by Carmenza Major MD) Anemia Anxiety Autoimmune hemolytic anemia Depression DVT (deep venous thrombosis) GERD (gastroesophageal reflux disease) History of rectal polyps History of vertebral fracture HTN (hypertension) Hypothyroidism Surgical History: Surgical History (Last Updated 03/29/19 @ 16:30 by Abhijit Frye) History of cholecystectomy History of hysterectomy History of skin graft History of splenectomy History of tonsillectomy Family History: Family History (Last Updated 03/17/24 @ 05:16 by Angela Mills RN) Mother Diabetes mellitus Cerebrovascular accident Family history of allergic disorder Family history of cardiovascular disease Family history of primary malignant neoplasm of liver Other Hypertension - Social History Social History: Social History (Last Updated 03/29/19 @ 16:29 by Abhijit Frye) Alcohol Use: Alcohol intake: never Substance Use: Substance use: former Substance use type: marijuana Others: Spiritual care concerns: No Smoking Status: Smoking status: Former smoker Tobacco type: cigarettes Second hand tobacco smoke exposure: Yes Smoking end date: 07/18/19 Smoking Pack-years: Smoking packs per day: 1 Smoking cigarettes per day: 20.0 Years smoked: 35 Smoking pack-years: 35.00 Social Determinants of Health: Do You Feel Safe in your Home?: Yes Has the Lack of Transportation Kept You From Medical Appointments or From Getting Medications?: No Within the Past 12 Months, Were You Worried Whether Your Food Would Run Out Before You Got Money to Buy More?: Never True What is Your Housing Situation Today?: I Have Housing Are You Worried That in the Next 2 Months, You May Not Have Your Own Housing to Live In?: No Do You Have Trouble Paying Your Heating Or Electricity Bill?: No Do You Have Trouble Paying For Medicines?: No Are You Currently Unemployed and Looking for Work?: No Highest Level of Education Completed: High School Diploma/GED Do You Have Trouble With Childcare or the Care of a Family Member?: No Exam - Vital Signs Vital Signs - 24 hr 03/16/24 23:19 03/16/24 23:30 03/17/24 00:17 Temperature 36.3 C L Pulse Rate 81 75 97 Respiratory Rate 18 14 18 Blood Pressure 110/64 114/67 104/85 Pulse Oximetry 97 98 96 Oxygen Delivery 03/17/24 02:00 03/17/24 02:30 03/17/24 03:25 Temperature Pulse Rate 78 80 76 Respiratory Rate 16 16 17 Blood Pressure 144/68 H Pulse Oximetry 97 96 100 Oxygen Delivery 03/17/24 04:39 03/17/24 05:06 03/17/24 05:32 Temperature 37.0 C Pulse Rate 73 66 Respiratory Rate 18 20 Blood Pressure 125/68 117/52 L Pulse Oximetry 97 98 Oxygen Delivery Room Air 03/17/24 14:00 Temperature 36.9 C Pulse Rate 78 Respiratory Rate 18 Blood Pressure 163/83 H Pulse Oximetry 98 Oxygen Delivery - Exam HEENT: EOMI, PERRLA, mucous membranes moist and pink Neck: supple Lungs: clear to auscultation, normal air movement Heart: no murmurs, gallops, or rubs, regular rhythm, regular rate Abdomen: abdomen soft, non-distended, normal bowel sounds Extremities: normal pulses Integumentary: no abnormalities Neurological: normal speech Psychological: mental status NL, mood NL - Lab Results Laboratory Last Values WBC 16.4 K/mm3 (4.5-10.0) H 03/16/24 18:55 RBC 3.46 M/mm3 (4.2-5.4) L 03/16/24 18:55 Hgb 6.9 g/dL (12.0-15.0) L* 03/17/24 18:13 Hct 23.9 % (37.0-47.0) L 03/17/24 18:13 MCV 69.4 fl (80-100) L 03/16/24 18:55 MCH 19.4 pg (26-34) L 03/16/24 18:55 MCHC 27.9 g/dl (32-36) L 03/16/24 18:55 RDW 19.0 % (11.5-14.5) H 03/16/24 18:55 Plt Count 726 k/mm3 (150-375) H 03/16/24 18:55 MPV 9.2 fl (7.4-10.4) 03/16/24 18:55 Immature Gran % (Auto) 0.2 % (0-0.5) 03/16/24 18:55 Neut % (Auto) 43.7 % (45.5-73.1) L 03/16/24 18:55 Lymph % (Auto) 46.5 % (18.3-44.2) H 03/16/24 18:55 [place] % (Auto) 7.0 % (2.6-8.5) 03/16/24 18:55 Eos % (Auto) 2.1 % (0-4.4) 03/16/24 18:55 Baso % (Auto) 0.5 % (0.2-1.2) 03/16/24 18:55 Lymph # (Auto) 7.62 K/mm3 (0.9-3.2) H 03/16/24 18:55 [place] # (Auto) 1.1 K/mm3 (0.1-0.6) H 03/16/24 18:55 Eos # (Auto) 0.3 K/mm3 (0-0.3) 03/16/24 18:55 Baso # (Auto) 0.1 K/mm3 (0.0-0.1) 03/16/24 18:55 Abs Immat Gran (auto) 0.04 K/mm3 (0.00-0.031) H 03/16/24 18:55 Absolute Neuts (auto) 7.1 K/mm3 (1.3-6.7) H 03/16/24 18:55 Absolute Nucleated RBC 0.060 K/mm3 (0.0-0.012) H 03/16/24 18:55 Nucleated RBC % 0.4 % (0.0-0.2) H 03/16/24 18:55 Atypical Lymphocytes Present 03/16/24 18:55 Platelet Estimate Increased (Adequate) 03/16/24 18:55 Hypochromasia 1+ 03/16/24 18:55 Microcytosis 1+ (NORMAL) 03/16/24 18:55 Target Cells 2+ 03/16/24 18:55 Ovalocytes 1+ 03/16/24 18:55 Schistocytes None seen 03/16/24 18:55 Sodium 138 mmol/L (137-145) 03/16/24 18:55 Potassium 2.9 mmol/L (3.4-5.0) L 03/16/24 18:55 Chloride 98 mmol/L (98-107) 03/16/24 18:55 Carbon Dioxide 29 mmol/L (22-30) 03/16/24 18:55 Anion Gap 11 mmol/L (4-12) 03/16/24 18:55 BUN 16 mg/dL (7-17) 03/16/24 18:55 Creatinine 0.70 mg/dL (0.7-1.0) 03/16/24 18:55 Estim Creat Clear Calc 100 ml/min 03/16/24 18:55 Estimated GFR > 60 (59-) 03/16/24 18:55 Glucose 96 mg/dL (65-110) 03/16/24 18:55 Calcium 8.7 mg/dL (8.4-10.2) 03/16/24 18:55 Magnesium 2.2 mg/dL (1.6-2.3) 03/16/24 18:55 Iron 20 ug/dL (37-170) L 03/17/24 03:22 TIBC 418 ug/dL (261-462) 03/17/24 03:22 % Saturation 5 % (20-50) L 03/17/24 03:22 Ferritin 7.14 ng/mL (11.1-264) L 03/17/24 03:21 Total Bilirubin 0.3 mg/dL (0.2-1.3) 03/16/24 18:55 AST 30 U/L (14-36) 03/16/24 18:55 ALT 20 U/L (6-35) 03/16/24 18:55 Alkaline Phosphatase 114 U/L (38-126) 03/16/24 18:55 Lactate Dehydrogenase 143 U/L (120-246) 03/17/24 03:22 Total Protein 8.0 g/dL (6.3-8.2) 03/16/24 18:55 Albumin 4.3 g/dL (3.5-5.1) 03/16/24 18:55 Vitamin B12 304.0 pg/mL (239-931) 03/17/24 03:22 Folate 13.9 ng/mL (2.76->20) 03/17/24 03:22 Blood Type O Positive 03/16/24 18:55 Antibody Screen Positive 03/16/24 18:55 Antibody Identification Warm Auto Antibody 03/16/24 18:55 Antigen Identification TNP 03/16/24 18:55 DISHA, IgG Interpret 4+ 03/16/24 18:55 DISHA, Poly Interpret TNP 03/16/24 18:55 DISHA, Complement Interp Negative 03/16/24 18:55 Enhanced Crossmatch See Detail 03/16/24 18:55 Meds Home Medications Medication Instructions Recorded Confirmed Type alprazolam 0.25 mg tablet 0.25 mg PO BID PRN Anxiety 03/17/24 03/17/24 History dulaglutide 1.5 mg/0.5 mL 1.5 mg subcut WEEKLY 03/17/24 03/17/24 History subcutaneous pen injector (Trulicity) hydrochlorothiazide 12.5 mg tablet 12.5 mg PO DAILY 03/17/24 03/17/24 History levothyroxine 75 mcg tablet 75 mcg PO DAILY 03/17/24 03/17/24 History lisinopril 10 mg tablet 10 mg PO DAILY 03/17/24 03/17/24 History omeprazole 40 mg capsule,delayed 40 mg PO DAILY 03/17/24 03/17/24 History release sertraline 100 mg tablet 100 mg PO DAILY 03/17/24 03/17/24 History Allergies Allergy/AdvReac Type Severity Reaction Status Date / Time levofloxacin Allergy Unknown Palpitation Verified 03/16/24 15:45 s Results - Labs CBC & Chem 7: 03/17/24 18:13 03/16/24 18:55 Labs: Short CBC 03/17/24 Range/Units 18:13 Hgb 6.9 L* (12.0-15.0) g/dL Hct 23.9 L (37.0-47.0) % Assessment and Plan - Additional Plan Microcytic anemia. Patient is of female with history of autoimmune hemolytic anemia status post splenectomy more than 10 years ago. She received treatment with steroid and Rituxan in the past. She now came into the hospital with generalized weakness and complain of bloody stool 6.7 with MCV of 69.4. Iron studies showed iron deficiency anemia with elevated platelet count. Patient has received iron infusion today. I will continue iron infusion for 2 more days. I will also order vitamin B12 supplement. Patient is planning to have colonoscopy done for likely GI bleeding. We will order the workup for hemolytic anemia including direct Alvino test and reticulocyte count. Haptoglobin was ordered and pending. LDH was normal. Total bilirubin was also normal. Unlikely hemolytic anemia at this time. She will be discharged home on the 5 mg twice a day with vitamin-C 500 mg daily. She will follow-up with Dr. Hughes as she is well known to him. I have answered all the questions to patient's satisfaction
[2024-03-17 20:23] LABS: Reticulocyte Hemoglobin Conten 16.5 pg (28.2-36.6); Reticulocyte Percent 2.44 % (0.7-4.3); Reticulocytes Absolute 0.08 10^6/uL (0.02-0.10)
--- NOTE | 2024-03-17 20:46 | PC.NURSE ---
Blood bank called requesting a physician signature for a blood waiver. Blood waiver unable to be located at this time so Dr. Major was called to get a verbal 2 RN consent over the phone. Dr. Major stated that he had purposefully not signed the waiver yet and is wanting the blood administration to be used as last resort to correct her low hemoglobin. Steroids were started today and he is wanting to see how it goes. Dr. Major also stated that since the pt hgb is 6.9 and vitals have been stable that we will wait until the morning to decide if the blood will be given.
[2024-03-17] MEDS: PANTOPRAZOLE SODIUM IV 40 MG VIAL IV PUSH (22:23)
[2024-03-17] MEDS: polyethylene glycoL 3350 238 GM BOTTLE PO (22:24)
[2024-03-18] VITALS (11 sets, daily range): BP systolic 96–144; BP diastolic 36–86; PULSE 70–83; RESP 15–19; TEMP 36–37.6; O2SAT 95–100
[2024-03-18] MEDS: MAGNESIUM CITRATE 300 ML BTL 180 ML PO (02:30)
[2024-03-18 08:13] LABS: Alanine Aminotransferase 18 U/L (6-35); Albumin Level 3.9 g/dL (3.5-5.1); Alkaline Phosphatase 91 U/L (38-126); Anion Gap 6 mmol/L (4-12); Aspartate Amino Transferase 21 U/L (14-36); Bilirubin,Total 0.2 mg/dL (0.2-1.3); Blood Urea Nitrogen 13 mg/dL (7-17); Calcium 9.1 mg/dL (8.4-10.2); Carbon Dioxide 36 mmol/L (22-30); Chloride 102 mmol/L (98-107); Estimated CRCL calculation 115 ml/min; Estimated Glomerular Filt Rate > 60; Glucose 105 mg/dL (65-110); Magnesium 2.5 mg/dL (1.6-2.3); Potassium 2.9 mmol/L (3.4-5.0); Sodium 144 mmol/L (137-145)
[2024-03-18 08:26] LABS: Basophils Absolute Auto 0.1 K/mm3 (0.0-0.1); Basophils Percent Auto 0.4 % (0.2-1.2); Eosinophils Absolute Auto 0.1 K/mm3 (0-0.3); Eosinophils Percent Auto 0.4 % (0-4.4); Hematocrit 23.8 % (37.0-47.0); Immature Granulocyte Absolute 0.08 K/mm3 (0.00-0.031); Immature Granulocyte Percent A 0.5 % (0-0.5); Lymphocytes Absolute Auto 7.29 K/mm3 (0.9-3.2); Lymphocytes Percent Auto 42.6 % (18.3-44.2); Mean Corpuscular HGB Conc 27.7 g/dl (32-36); Mean Corpuscular Hemoglobin 19.5 pg (26-34); Mean Corpuscular Volume 70.4 fl (80-100); Mean Platelet Volume 9.6 fl (7.4-10.4); Monocytes Absolute Auto 1.5 K/mm3 (0.1-0.6); Neutrophils Absolute Auto 8.1 K/mm3 (1.3-6.7); Neutrophils Percent Auto 47.1 % (45.5-73.1); Platelet Count Result 725 k/mm3 (150-375); Red Blood Count 3.38 M/mm3 (4.2-5.4); Red Cell Distribution Width 19.2 % (11.5-14.5); White Blood Count 17.1 K/mm3 (4.5-10.0)
[2024-03-18 08:30] LABS: Hemoglobin 6.6 g/dL (12.0-15.0)
[2024-03-18] MEDS: polyethylene glycoL 3350 238 GM BOTTLE PO (08:47)
[2024-03-18] MEDS: predniSONE 40 MG, predniSONE 10 MG 50 MG PO (08:48)
[2024-03-18] MEDS: CYANOCOBALAMIN 1,000 MCG TABLET 1000 MCG PO (08:49)
[2024-03-18] MEDS: lisinopriL 10 MG TABLET PO (08:49)
[2024-03-18] MEDS: hydroCHLOROthiazide 12.5 MG CAPSULE PO (08:49)
[2024-03-18] MEDS: LEVOTHYROXINE SODIUM 75 MCG TABLET PO (08:49)
[2024-03-18] MEDS: SERTRALINE HCL 50 MG TABLET 100 MG PO (08:49)
[2024-03-18] MEDS: PANTOPRAZOLE SODIUM IV 40 MG VIAL IV PUSH (08:49)
[2024-03-18 09:49] LABS: Platelet Estimate Increased (Adequate)
[2024-03-18 09:53] LABS: Anisocytosis 2+; Hypochromasia 1+; Microcytosis 1+ (NORMAL); Schistocytes Rare; Target Cells 1+
[2024-03-18] MEDS: IRON SUCROSE COMPLEX 400 MG, IRON SUCROSE COMPLEX 100 MG in SODIUM CHLORIDE 0.9% IV 250 ML 78.57 MG IVPB (10:13)
--- NOTE | 2024-03-18 10:23 | PC.NURSE ---
Gave report to Marisa in GI lab.
[2024-03-18] MEDS: SODIUM CHLORIDE 0.9% IV 250 ML 30 ML IV CONT (11:45)
--- NOTE | 2024-03-18 13:38 | PM.IMPN ---
Progress Note: A&P Assessment and Plan (1) Anemia: Qualifiers: Anemia type: unspecified type Qualified Code(s): D64.9 - Anemia, unspecified Code(s): D64.9 - Anemia, unspecified Status: Acute (2) Autoimmune hemolytic anemia: Code(s): D59.1 - Other autoimmune hemolytic anemias Status: Acute (3) Hypothyroidism: Code(s): E03.9 - Hypothyroidism, unspecified Status: Acute (4) HTN (hypertension): Code(s): I10 - Essential (primary) hypertension Status: Acute (5) Anxiety: Code(s): F41.9 - Anxiety disorder, unspecified Status: Acute Plan Anemia Patient has a history of autoimmune hemolytic anemia Noted that she was to steroids, 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 Also noted bloody stool. On prednisone 50mg daily Hem eval noted to discharge on 5mg bid of prednisone and Vit C 500mg daily LDH normal, retic count elevated and haptoglobin pending Oncology eval noted, recommended outpatient follow up Iron deficiency Ferritin 7.14, with platelets 726, i-STAT 5 Note a history of bloody stool. 1000/1000mg IV iron Possible GI bleed Patient noted bloody stool Along with iron deficient anemia GI bleed highly suspected. On Protonix, CT abdomen and pelvis ordered. GI consulted., for EGD and Colonoscopy Hypothyroidism Continue home medications. Hypertension next item medication clinical course /anxiety continue medications. DVT prophylaxis SCDs no anticoagulation due to GI bleed. Patient is full code Surrogate decision maker is Alvaro ribera Subjective Date/time seen: 03/18/24 13:38 Interval history: Comfortable at bedside Cleared by hematology to receive least compatible blood product For EGD and colonoscopy today Review of Systems Review of Systems: All other systems reviewed and negative except as noted in the history above Exam Narrative: General: alert and comfortable Eyes: EOMI, PERRLA ENNT External ears normal, Neck is supple, no masses, Respiratory systems: Clear to auscultation Cardiovascular S1, S2, normal rhythm, no murmur, rub, or gallop; no thrill or palpable murmurs on palpation. Gastrointestinal: soft, non-tender, and non-distended abdomen with no masses; BS present Skin: no rash, lesions, ulcerations, subcutaneous nodules or induration Musculoskeletal: no abnormality and no tenderness, normal ROM Neurologic: Alert and oriented x3, non focal Mental Status Exam: normal affect Objective Data Vital Signs Vital Signs: Vital Signs - 24 hr 03/17/24 14:00 03/17/24 22:00 03/17/24 20:00 Temperature 98.4 F 99.5 F Pulse Rate 78 97 Respiratory Rate 18 18 Blood Pressure 163/83 H 149/69 H Pulse Oximetry 98 97 Oxygen Delivery Room Air 03/18/24 05:26 03/18/24 11:45 03/18/24 12:00 Temperature 97.6 F 99.6 F 99.7 F H Pulse Rate 82 78 81 Respiratory Rate 18 15 16 Blood Pressure 141/76 H 112/86 129/66 Pulse Oximetry 99 98 98 Oxygen Delivery 03/18/24 13:00 Temperature 99.0 F Pulse Rate 77 Respiratory Rate 16 Blood Pressure 125/62 Pulse Oximetry 95 Oxygen Delivery Intake/Output Intake/Output: Intake & Output 03/15/24 03/16/24 03/17/24 03/18/24 23:59 23:59 23:59 23:59 Intake Total 1245 550 Output Total 500 Balance 745 550 Meds/Results Medications: Active Medications Generic Name Dose Route Start Last Admin Trade Name Freq PRN Reason Stop Dose Admin Alprazolam 0.25 mg 03/17/24 15:58 Alprazolam (*Crx) 0.25 Mg Tablet PO BID PRN Anxiety Cyanocobalamin 1,000 mcg 03/18/24 09:00 03/18/24 08:49 Cyanocobalamin 1,000 Mcg Tablet PO 1,000 mcg QAM DAPHNE Administration Hydrochlorothiazide 12.5 mg 03/18/24 09:00 03/18/24 08:49 Hydrochlorothiazide 12.5 Mg Capsule PO 12.5 mg DAILY DAPHNE Administration Iron Sucrose 400 mg/ Iron 275 mls @ 78.571 mls/hr 03/18/24 10:30 03/18/24 10:13 Sucrose 100 mg/ Sodium IVPB 03/18/24 13:59 78.57 mls/hr Chloride ONCE ONE Administration Levothyroxine Sodium 75 mcg 03/18/24 09:00 03/18/24 08:49 Levothyroxine Sodium 75 Mcg Tablet PO 75 mcg DAILY@0630 DAPHNE Administration Lisinopril 10 mg 03/18/24 09:00 03/18/24 08:49 Lisinopril 10 Mg Tablet PO 10 mg DAILY DAPHNE Administration Pantoprazole Sodium 40 mg 03/17/24 21:00 03/18/24 08:49 Pantoprazole Sodium Iv 40 Mg Vial IV PUSH 40 mg Q12HR DAPHNE Administration Pantoprazole Sodium 40 mg 03/17/24 17:00 03/18/24 06:55 Pantoprazole 40 Mg Tablet PO Not Given BID DAPHNE Prednisone 40 mg/ Prednisone 50 mg 03/17/24 12:30 03/18/24 08:48 10 mg PO 50 mg DAILY@0800 DAPHNE Administration Sertraline HCl 100 mg 03/18/24 09:00 03/18/24 08:49 Sertraline Hcl 50 Mg Tablet PO 100 mg DAILY DAPHNE Administration Radiology Results: ITS Impressions Abdomen/Pelvis CT 03/17/24 15:01 IMPRESSION: 1. Small sliding hiatal hernia. Chest X-Ray 03/18/24 10:50 IMPRESSION: 1. No acute cardiopulmonary disease. Labs Labs: Laboratory Results - last 24 hr 03/16/24 03/17/24 03/17/24 18:55 18:13 18:55 WBC RBC Hgb 6.9 L* Hct 23.9 L MCV MCH MCHC RDW Plt Count MPV Immature Gran % (Auto) Neut % (Auto) Lymph % (Auto) [place] % (Auto) Eos % (Auto) Baso % (Auto) Lymph # (Auto) [place] # (Auto) Eos # (Auto) Baso # (Auto) Abs Immat Gran (auto) Absolute Neuts (auto) Absolute Nucleated RBC Nucleated RBC % Platelet Estimate Hypochromasia Anisocytosis Microcytosis Target Cells Schistocytes Absolute Retic Percent Retic Immature Retic Fraction Retic Hgb Content Sodium Potassium Chloride Carbon Dioxide Anion Gap BUN Creatinine Estim Creat Clear Calc Estimated GFR Glucose Calcium Magnesium Total Bilirubin AST ALT Alkaline Phosphatase Total Protein Albumin Blood Type O Positive Antibody Screen Positive Antibody Identification Warm Auto Antibody Antigen Identification TNP DISHA, IgG Interpret 4+ 4+ DISHA, Poly Interpret TNP Not Performed DISHA, Complement Interp Negative Negative Enhanced Crossmatch See Detail 03/17/24 03/18/24 20:11 07:43 WBC 17.1 H RBC 3.38 L Hgb 6.6 L* Hct 23.8 L MCV 70.4 L MCH 19.5 L MCHC 27.7 L RDW 19.2 H Plt Count 725 H MPV 9.6 Immature Gran % (Auto) 0.5 Neut % (Auto) 47.1 Lymph % (Auto) 42.6 [place] % (Auto) 9.0 H Eos % (Auto) 0.4 Baso % (Auto) 0.4 Lymph # (Auto) 7.29 H [place] # (Auto) 1.5 H Eos # (Auto) 0.1 Baso # (Auto) 0.1 Abs Immat Gran (auto) 0.08 H Absolute Neuts (auto) 8.1 H Absolute Nucleated RBC 0.170 H Nucleated RBC % 1.0 H Platelet Estimate Increased Hypochromasia 1+ Anisocytosis 2+ Microcytosis 1+ Target Cells 1+ Schistocytes Rare Absolute Retic 0.08 Percent Retic 2.44 Immature Retic Fraction 29.0 H Retic Hgb Content 16.5 L Sodium 144 Potassium 2.9 L Chloride 102 Carbon Dioxide 36 H Anion Gap 6 BUN 13 Creatinine 0.60 L Estim Creat Clear Calc 115 Estimated GFR > 60 Glucose 105 Calcium 9.1 Magnesium 2.5 H Total Bilirubin 0.2 AST 21 ALT 18 Alkaline Phosphatase 91 Total Protein 8.0 Albumin 3.9 Blood Type Antibody Screen Antibody Identification Antigen Identification DISHA, IgG Interpret DISHA, Poly Interpret DISHA, Complement Interp Enhanced Crossmatch
[2024-03-18 13:39] LABS: Haptoglobin 211 mg/dL (43-212)
[2024-03-18] MEDS: LACTATED RINGERS 1,000 ML 150 ML IV CONT (14:04)
--- NOTE | 2024-03-18 14:26 | P.PNAN_ITS ---
Anes - Initial Pre Proc Eval Procedure: Operation Date: 03/18/24 12:30 Proposed Procedures p Esophagogastroduodenoscopy & Colonoscopy - Sharif Cox MD Date/Time: 03/18/24 14:26 Surgeon: Carmenza Major MD Pre Op Diagnosis: Anemia Patient Data Age: 54 Gender: F Height: 1.68 m Weight: 115.7 kg Last Vital Signs Temp 36.8 C 03/18/24 13:40 Pulse 80 03/18/24 13:40 Resp 16 03/18/24 13:40 BP 144/62 H 03/18/24 13:40 Pulse Ox 97 03/18/24 13:40 O2 Del Method Room Air 03/18/24 13:40 Allergies Allergy/AdvReac Type Severity Reaction Status Date / Time levofloxacin Allergy Unknown Palpitation Verified 03/18/24 13:48 s Home Medications Medication Instructions Recorded Confirmed Type alprazolam 0.25 mg tablet 0.25 mg PO BID PRN Anxiety 03/17/24 03/17/24 History dulaglutide 1.5 mg/0.5 mL 1.5 mg subcut WEEKLY 03/17/24 03/17/24 History subcutaneous pen injector (Trulicity) hydrochlorothiazide 12.5 mg tablet 12.5 mg PO DAILY 03/17/24 03/17/24 History levothyroxine 75 mcg tablet 75 mcg PO DAILY 03/17/24 03/17/24 History lisinopril 10 mg tablet 10 mg PO DAILY 03/17/24 03/17/24 History omeprazole 40 mg capsule,delayed 40 mg PO DAILY 03/17/24 03/17/24 History release sertraline 100 mg tablet 100 mg PO DAILY 03/17/24 03/17/24 History Laboratory Tests 03/16/24 03/17/24 03/17/24 18:55 03:23 18:13 WBC RBC Hgb 6.9 L* g/dL (12.0-15.0) Hct 23.9 L % (37.0-47.0) MCV MCH MCHC RDW Plt Count MPV Immature Gran % (Auto) Neut % (Auto) Lymph % (Auto) [place] % (Auto) Eos % (Auto) Baso % (Auto) Lymph # (Auto) [place] # (Auto) Eos # (Auto) Baso # (Auto) Abs Immat Gran (auto) Absolute Neuts (auto) Absolute Nucleated RBC Nucleated RBC % Platelet Estimate Hypochromasia Anisocytosis Microcytosis Target Cells Schistocytes Absolute Retic Percent Retic Immature Retic Fraction Retic Hgb Content Haptoglobin 211 mg/dL (43-212) Sodium Potassium Chloride Carbon Dioxide Anion Gap BUN Creatinine Estim Creat Clear Calc Estimated GFR Glucose Calcium Magnesium Total Bilirubin AST ALT Alkaline Phosphatase Total Protein Albumin Blood Type O Positive Antibody Screen Positive Antibody Identification Warm Auto Antibody Antigen Identification TNP DISHA, IgG Interpret 4+ DISHA, Poly Interpret TNP DISHA, Complement Interp Negative Enhanced Crossmatch See Detail 03/17/24 03/17/24 03/18/24 18:55 20:11 07:43 WBC 17.1 H K/mm3 (4.5-10.0) RBC 3.38 L M/mm3 (4.2-5.4) Hgb 6.6 L* g/dL (12.0-15.0) Hct 23.8 L % (37.0-47.0) MCV 70.4 L fl (80-100) MCH 19.5 L pg (26-34) MCHC 27.7 L g/dl (32-36) RDW 19.2 H % (11.5-14.5) Plt Count 725 H k/mm3 (150-375) MPV 9.6 fl (7.4-10.4) Immature Gran % (Auto) 0.5 % (0-0.5) Neut % (Auto) 47.1 % (45.5-73.1) Lymph % (Auto) 42.6 % (18.3-44.2) [place] % (Auto) 9.0 H % (2.6-8.5) Eos % (Auto) 0.4 % (0-4.4) Baso % (Auto) 0.4 % (0.2-1.2) Lymph # (Auto) 7.29 H K/mm3 (0.9-3.2) [place] # (Auto) 1.5 H K/mm3 (0.1-0.6) Eos # (Auto) 0.1 K/mm3 (0-0.3) Baso # (Auto) 0.1 K/mm3 (0.0-0.1) Abs Immat Gran (auto) 0.08 H K/mm3 (0.00-0.031) Absolute Neuts (auto) 8.1 H K/mm3 (1.3-6.7) Absolute Nucleated RBC 0.170 H K/mm3 (0.0-0.012) Nucleated RBC % 1.0 H % (0.0-0.2) Platelet Estimate Increased (Adequate) Hypochromasia 1+ Anisocytosis 2+ Microcytosis 1+ (NORMAL) Target Cells 1+ Schistocytes Rare Absolute Retic 0.08 10^6/uL (0.02-0.10) Percent Retic 2.44 % (0.7-4.3) Immature Retic Fraction 29.0 H % (3.0-15.9) Retic Hgb Content 16.5 L pg (28.2-36.6) Haptoglobin Sodium 144 mmol/L (137-145) Potassium 2.9 L mmol/L (3.4-5.0) Chloride 102 mmol/L (98-107) Carbon Dioxide 36 H mmol/L (22-30) Anion Gap 6 mmol/L (4-12) BUN 13 mg/dL (7-17) Creatinine 0.60 L mg/dL (0.7-1.0) Estim Creat Clear Calc 115 ml/min Estimated GFR > 60 (59 - ) Glucose 105 mg/dL (65-110) Calcium 9.1 mg/dL (8.4-10.2) Magnesium 2.5 H mg/dL (1.6-2.3) Total Bilirubin 0.2 mg/dL (0.2-1.3) AST 21 U/L (14-36) ALT 18 U/L (6-35) Alkaline Phosphatase 91 U/L (38-126) Total Protein 8.0 g/dL (6.3-8.2) Albumin 3.9 g/dL (3.5-5.1) Blood Type Antibody Screen Antibody Identification Antigen Identification DISHA, IgG Interpret 4+ DISHA, Poly Interpret Not Performed DISHA, Complement Interp Negative Enhanced Crossmatch Patient hx anesthesia problems: none Family hx anesthesia problems: none Results Review: All pre-operative results and documents have been reviewed as part of the pre- operative evaluation. REPLACED BY [facility] Past Medical History Medical History Anemia Anxiety Autoimmune hemolytic anemia Depression DVT (deep venous thrombosis) GERD (gastroesophageal reflux disease) History of rectal polyps History of vertebral fracture HTN (hypertension) Hypothyroidism Surgical History Surgical History History of cholecystectomy History of hysterectomy History of skin graft History of splenectomy History of tonsillectomy Family History Family History Mother Diabetes mellitus Cerebrovascular accident Family history of allergic disorder Family history of cardiovascular disease Family history of primary malignant neoplasm of liver Other Hypertension Social History Social History Smoking packs per day: 1 Smoking cigarettes per day: 20.0 Years smoked: 35 Smoking pack-years: 35.00 Smoking status: Former smoker Tobacco type: cigarettes Second hand tobacco smoke exposure: Yes Smoking end date: 07/18/19 Alcohol intake: never Substance use: former Substance use type: marijuana Do You Feel Safe in your Home?: Yes Lack of Transportation: No Lack of Food: Never True Current Housing: I Have Housing Concerned About Future Housing: No Difficulty Paying Gas/Electric Bills: No Difficulty Paying for Meds: No Currently Unemployed: No Education: High School Diploma/GED Difficulty w/ Childcare or Family Care: No Spiritual care concerns: No Anes - Eval Final PreProcedure Day of Procedure 03/18/24 14:26 Patient weight: morbidly obese Heart: regular rate and rhythm Lungs: clear to auscultation Airway: Mallampati scale class II Neurological: alert and oriented Last oral intake: >/= 8 hours ASA classification: III Emergent: no Anesthetic plan: proceed Anesthesia type and monitoring: general GIVS and standard monitoring Results Review: All pre-operative results and documents have been reviewed as part of the pre- operative evaluation. Informed Consent: The patient's anesthetic plan and its attendant risks and benefits were disc ussed with the patient/family/POA. Questions were solicited and answers provided to the satisfaction of the patient/family/POA.
--- NOTE | 2024-03-18 14:50 | PM.IMHP ---
H&P: HPI History of Present Illness Date/Time: 03/18/24 14:50 Chief Complaint: Anemia, rectal bleeding Narrative: The patient has autoimmune hemolytic anemia and was found to have iron deficiency anemia as well. She has never had melena or hematochezia but she does describe small amount of rectal bleeding and spurting. She is now for colonoscopy and EGD. Review of Systems Review of Systems: All systems reviewed & are unremarkable except as noted in HPI and below PMFSH Past Medical History Medical History Anemia Anxiety Autoimmune hemolytic anemia Depression DVT (deep venous thrombosis) GERD (gastroesophageal reflux disease) History of rectal polyps History of vertebral fracture HTN (hypertension) Hypothyroidism Surgical History Surgical History History of cholecystectomy History of hysterectomy History of skin graft History of splenectomy History of tonsillectomy Family History Family History Mother Diabetes mellitus Cerebrovascular accident Family history of allergic disorder Family history of cardiovascular disease Family history of primary malignant neoplasm of liver Other Hypertension Social History Social History Smoking packs per day: 1 Smoking cigarettes per day: 20.0 Years smoked: 35 Smoking pack-years: 35.00 Smoking status: Former smoker Tobacco type: cigarettes Second hand tobacco smoke exposure: Yes Smoking end date: 07/18/19 Alcohol intake: never Substance use: former Substance use type: marijuana Do You Feel Safe in your Home?: Yes Lack of Transportation: No Lack of Food: Never True Current Housing: I Have Housing Concerned About Future Housing: No Difficulty Paying Gas/Electric Bills: No Difficulty Paying for Meds: No Currently Unemployed: No Education: High School Diploma/GED Difficulty w/ Childcare or Family Care: No Spiritual care concerns: No Meds Home Medications and Allergies Home Medications Medication Instructions Recorded Confirmed Type alprazolam 0.25 mg tablet 0.25 mg PO BID PRN Anxiety 03/17/24 03/17/24 History dulaglutide 1.5 mg/0.5 mL 1.5 mg subcut WEEKLY 03/17/24 03/17/24 History subcutaneous pen injector (Trulicity) hydrochlorothiazide 12.5 mg tablet 12.5 mg PO DAILY 03/17/24 03/17/24 History levothyroxine 75 mcg tablet 75 mcg PO DAILY 03/17/24 03/17/24 History lisinopril 10 mg tablet 10 mg PO DAILY 03/17/24 03/17/24 History omeprazole 40 mg capsule,delayed 40 mg PO DAILY 03/17/24 03/17/24 History release sertraline 100 mg tablet 100 mg PO DAILY 03/17/24 03/17/24 History Allergies Allergy/AdvReac Type Severity Reaction Status Date / Time levofloxacin Allergy Unknown Palpitation Verified 03/18/24 13:48 s Vital Signs Vital Signs - 24 hr 03/17/24 22:00 03/17/24 20:00 03/18/24 05:26 Temperature 99.5 F 97.6 F Pulse Rate 97 82 Respiratory Rate 18 18 Blood Pressure 149/69 H 141/76 H Pulse Oximetry 97 99 Oxygen Delivery Room Air 03/18/24 11:45 03/18/24 12:00 03/18/24 13:00 Temperature 99.6 F 99.7 F H 99.0 F Pulse Rate 78 81 77 Respiratory Rate 15 16 16 Blood Pressure 112/86 129/66 125/62 Pulse Oximetry 98 98 95 Oxygen Delivery 03/18/24 13:40 03/18/24 13:40 Temperature 98.2 F 98.2 F Pulse Rate 80 80 Respiratory Rate 16 16 Blood Pressure 144/62 H 144/62 H Pulse Oximetry 97 97 Oxygen Delivery Room Air H&P: Results Labs Labs: Short CBC 03/17/24 03/18/24 Range/Units 18:13 07:43 WBC 17.1 H (4.5-10.0) K/mm3 Hgb 6.9 L* 6.6 L* (12.0-15.0) g/dL Hct 23.9 L 23.8 L (37.0-47.0) % Plt Count 725 H (150-375) k/mm3 BMP 03/18/24 07:43 Sodium 144 Potassium 2.9 L Chloride 102 Carbon Dioxide 36 H BUN 13 Creatinine 0.60 L Glucose 105 Calcium 9.1 Liver Function 03/18/24 Range/Units 07:43 Total Bilirubin 0.2 (0.2-1.3) mg/dL AST 21 (14-36) U/L ALT 18 (6-35) U/L Alkaline Phosphatase 91 (38-126) U/L Albumin 3.9 (3.5-5.1) g/dL Assessment and Plan Assessment and plan (1) Iron deficiency anemia: Code(s): D50.9 - Iron deficiency anemia, unspecified Status: Acute Plan The patient is deemed a good candidate for the procedure. Consent signed. Will proceed.
--- NOTE | 2024-03-18 14:54 | PM.IMHP ---
H&P: HPI History of Present Illness Date/Time: 03/18/24 14:54 Chief Complaint: Intermittent rectal bleeding and anemia [facility] Past Medical History Medical History (Updated 03/18/24 @ 18:34 by Sharif Cox MD) Anemia Anxiety Autoimmune hemolytic anemia Depression DVT (deep venous thrombosis) GERD (gastroesophageal reflux disease) History of rectal polyps History of vertebral fracture HTN (hypertension) Hypothyroidism Iron deficiency anemia Surgical History Surgical History History of cholecystectomy History of hysterectomy History of skin graft History of splenectomy History of tonsillectomy Family History Family History Mother Diabetes mellitus Cerebrovascular accident Family history of allergic disorder Family history of cardiovascular disease Family history of primary malignant neoplasm of liver Other Hypertension Social History Social History Smoking packs per day: 1 Smoking cigarettes per day: 20.0 Years smoked: 35 Smoking pack-years: 35.00 Smoking status: Former smoker Tobacco type: cigarettes Second hand tobacco smoke exposure: Yes Smoking end date: 07/18/19 Alcohol intake: never Substance use: former Substance use type: marijuana Do You Feel Safe in your Home?: Yes Lack of Transportation: No Lack of Food: Never True Current Housing: I Have Housing Concerned About Future Housing: No Difficulty Paying Gas/Electric Bills: No Difficulty Paying for Meds: No Currently Unemployed: No Education: High School Diploma/GED Difficulty w/ Childcare or Family Care: No Spiritual care concerns: No Meds Home Medications and Allergies Home Medications Medication Instructions Recorded Confirmed Type alprazolam 0.25 mg tablet 0.25 mg PO BID PRN Anxiety 03/17/24 03/17/24 History dulaglutide 1.5 mg/0.5 mL 1.5 mg subcut WEEKLY 03/17/24 03/17/24 History subcutaneous pen injector (Trulicity) hydrochlorothiazide 12.5 mg tablet 12.5 mg PO DAILY 03/17/24 03/17/24 History levothyroxine 75 mcg tablet 75 mcg PO DAILY 03/17/24 03/17/24 History lisinopril 10 mg tablet 10 mg PO DAILY 03/17/24 03/17/24 History omeprazole 40 mg capsule,delayed 40 mg PO DAILY 03/17/24 03/17/24 History release sertraline 100 mg tablet 100 mg PO DAILY 03/17/24 03/17/24 History ascorbic acid (vitamin C) 500 mg 500 mg PO DAILY 30 days #30 tabs 03/21/24 Rx tablet (Vitamin C) prednisone 5 mg tablet 5 mg PO BID #30 tabs 03/21/24 Rx Allergies Allergy/AdvReac Type Severity Reaction Status Date / Time levofloxacin Allergy Unknown Palpitation Verified 03/18/24 13:48 s Vital Signs Vital Signs - 24 hr 03/17/24 22:00 03/17/24 20:00 03/18/24 05:26 Temperature 99.5 F 97.6 F Pulse Rate 97 82 Respiratory Rate 18 18 Blood Pressure 149/69 H 141/76 H Pulse Oximetry 97 99 Oxygen Delivery Room Air 03/18/24 11:45 03/18/24 12:00 03/18/24 13:00 Temperature 99.6 F 99.7 F H 99.0 F Pulse Rate 78 81 77 Respiratory Rate 15 16 16 Blood Pressure 112/86 129/66 125/62 Pulse Oximetry 98 98 95 Oxygen Delivery 03/18/24 13:40 03/18/24 13:40 Temperature 98.2 F 98.2 F Pulse Rate 80 80 Respiratory Rate 16 16 Blood Pressure 144/62 H 144/62 H Pulse Oximetry 97 97 Oxygen Delivery Room Air Exam Const: General: cooperative and healthy appearing Resp: Effort & Inspection: normal respiratory effort and able to speak in complete sentences Auscultation: clear to auscultation bilaterally Cardio: Rate: regular rate Rhythm: regular rhythm GI: Inspection: normal to inspection GI Palp: No No hepatosplenomegaly present Auscultation: normal bowel sounds Rectal Exam: deferred Skin: General skin exam: normal color Psych: Appearance: grossly normal Mental Status: mental status grossly normal H&P: Results Labs Labs: Short CBC 03/17/24 03/18/24 Range/Units 18:13 07:43 WBC 17.1 H (4.5-10.0) K/mm3 Hgb 6.9 L* 6.6 L* (12.0-15.0) g/dL Hct 23.9 L 23.8 L (37.0-47.0) % Plt Count 725 H (150-375) k/mm3 [facility] 03/18/24 07:43 Sodium 144 Potassium 2.9 L Chloride 102 Carbon Dioxide 36 H BUN 13 Creatinine 0.60 L Glucose 105 Calcium 9.1 Liver Function 03/18/24 Range/Units 07:43 Total Bilirubin 0.2 (0.2-1.3) mg/dL AST 21 (14-36) U/L ALT 18 (6-35) U/L Alkaline Phosphatase 91 (38-126) U/L Albumin 3.9 (3.5-5.1) g/dL
--- NOTE | 2024-03-18 15:07 | SUR.OPER ---
EGD: 1507-
--- NOTE | 2024-03-18 15:08 | SUR.OPER ---
EGD: 1507 - 1513, Colonoscopy 1515
[2024-03-18] MEDS: SIMETHICONE ORAL SUSPENSION 20 MG/0.3 ML 30 ML BOTTLE 0.6 ML PO (15:09)
--- NOTE | 2024-03-18 16:18 | PC.NURSE ---
Returned from GI Lab. Report received from [[email or web address]].
[2024-03-18 16:51] LABS: Hematocrit 29.7 % (37.0-47.0); Hemoglobin 8.3 g/dL (12.0-15.0)
--- NOTE | 2024-03-18 18:32 | WPDGIPROGNO ---
Progress Note: A&P Assessment and Plan (1) Anemia: Qualifiers: Anemia type: unspecified type Qualified Code(s): D64.9 - Anemia, unspecified Code(s): D64.9 - Anemia, unspecified Status: Acute Assessment and Plan: The patient's iron deficiency anemia cannot be explained based on colonoscopy and EGD performed today. Capsule endoscopy study suggested. Will try to set it up as an outpatient. Time Spent With Patient Time with patient: less than 15 minutes Subjective Date/time seen: 03/18/24 18:32 Interval history: The patient underwent colonoscopy and EGD this afternoon. No significant findings explaining iron deficiency anemia found during evaluation. She is getting her 2nd unit of packed red blood cells. Objective Data Vital Signs Vital Signs: Vital Signs - 24 hr 03/17/24 22:00 03/17/24 20:00 03/18/24 05:26 Temperature 99.5 F 97.6 F Pulse Rate 97 82 Respiratory Rate 18 18 Blood Pressure 149/69 H 141/76 H Pulse Oximetry 97 99 Oxygen Delivery Room Air 03/18/24 11:45 03/18/24 12:00 03/18/24 13:00 Temperature 99.6 F 99.7 F H 99.0 F Pulse Rate 78 81 77 Respiratory Rate 15 16 16 Blood Pressure 112/86 129/66 125/62 Pulse Oximetry 98 98 95 Oxygen Delivery 03/18/24 13:40 03/18/24 13:40 03/18/24 15:23 Temperature 98.2 F 98.2 F 98 F Pulse Rate 80 80 83 Respiratory Rate 16 16 19 Blood Pressure 144/62 H 144/62 H 102/55 L Pulse Oximetry 97 97 100 Oxygen Delivery Room Air 03/18/24 15:49 03/18/24 15:59 03/18/24 16:09 Temperature Pulse Rate 80 78 74 Respiratory Rate 18 19 19 Blood Pressure 96/36 L 117/57 L 130/64 Pulse Oximetry 100 96 97 Oxygen Delivery Room Air Room Air Room Air 03/18/24 16:38 Temperature 96.8 F L Pulse Rate 70 Respiratory Rate 17 Blood Pressure 130/56 L Pulse Oximetry 100 Oxygen Delivery Intake/Output Intake/Output: Intake & Output 03/15/24 03/16/24 03/17/24 03/18/24 23:59 23:59 23:59 23:59 Intake Total 1245 2015 Output Total 500 Balance 745 2014 Meds/Results Medications: Active Medications Generic Name Dose Route Start Last Admin Trade Name Freq PRN Reason Stop Dose Admin Alprazolam 0.25 mg 03/17/24 15:58 Alprazolam (*Crx) 0.25 Mg Tablet PO BID PRN Anxiety Cyanocobalamin 1,000 mcg 03/18/24 09:00 03/18/24 08:49 Cyanocobalamin 1,000 Mcg Tablet PO 1,000 mcg QAM DAPHNE Administration Hydrochlorothiazide 12.5 mg 03/18/24 09:00 03/18/24 08:49 Hydrochlorothiazide 12.5 Mg Capsule PO 12.5 mg DAILY DAPHNE Administration Levothyroxine Sodium 75 mcg 03/18/24 09:00 03/18/24 08:49 Levothyroxine Sodium 75 Mcg Tablet PO 75 mcg DAILY@0630 DAPHNE Administration Lisinopril 10 mg 03/18/24 09:00 03/18/24 08:49 Lisinopril 10 Mg Tablet PO 10 mg DAILY DAPHNE Administration Prednisone 40 mg/ Prednisone 50 mg 03/17/24 12:30 03/18/24 08:48 10 mg PO 50 mg DAILY@0800 DAPHNE Administration Sertraline HCl 100 mg 03/18/24 09:00 03/18/24 08:49 Sertraline Hcl 50 Mg Tablet PO 100 mg DAILY DAPHNE Administration Radiology Results: ITS Impressions Abdomen/Pelvis CT 03/17/24 15:01 IMPRESSION: 1. Small sliding hiatal hernia. Chest X-Ray 03/18/24 10:50 IMPRESSION: 1. No acute cardiopulmonary disease. Labs Labs: Laboratory Results - last 24 hr 03/16/24 03/17/24 03/17/24 18:55 03:23 18:55 WBC RBC Hgb Hct MCV MCH MCHC RDW Plt Count MPV Immature Gran % (Auto) Neut % (Auto) Lymph % (Auto) [place] % (Auto) Eos % (Auto) Baso % (Auto) Lymph # (Auto) [place] # (Auto) Eos # (Auto) Baso # (Auto) Abs Immat Gran (auto) Absolute Neuts (auto) Absolute Nucleated RBC Nucleated RBC % Platelet Estimate Hypochromasia Anisocytosis Microcytosis Target Cells Schistocytes Absolute Retic Percent Retic Immature Retic Fraction Retic Hgb Content Haptoglobin 211 Sodium Potassium Chloride Carbon Dioxide Anion Gap BUN Creatinine Estim Creat Clear Calc Estimated GFR Glucose Calcium Magnesium Total Bilirubin AST ALT Alkaline Phosphatase Total Protein Albumin Blood Type O Positive Antibody Screen Positive Antibody Identification Warm Auto Antibody Antigen Identification TNP DISHA, IgG Interpret 4+ 4+ DISHA, Poly Interpret TNP Not Performed DISHA, Complement Interp Negative Negative Enhanced Crossmatch See Detail 03/17/24 03/18/24 03/18/24 20:11 07:43 16:35 WBC 17.1 H RBC 3.38 L Hgb 6.6 L* 8.3 L Hct 23.8 L 29.7 L MCV 70.4 L MCH 19.5 L MCHC 27.7 L RDW 19.2 H Plt Count 725 H MPV 9.6 Immature Gran % (Auto) 0.5 Neut % (Auto) 47.1 Lymph % (Auto) 42.6 [place] % (Auto) 9.0 H Eos % (Auto) 0.4 Baso % (Auto) 0.4 Lymph # (Auto) 7.29 H [place] # (Auto) 1.5 H Eos # (Auto) 0.1 Baso # (Auto) 0.1 Abs Immat Gran (auto) 0.08 H Absolute Neuts (auto) 8.1 H Absolute Nucleated RBC 0.170 H Nucleated RBC % 1.0 H Platelet Estimate Increased Hypochromasia 1+ Anisocytosis 2+ Microcytosis 1+ Target Cells 1+ Schistocytes Rare Absolute Retic 0.08 Percent Retic 2.44 Immature Retic Fraction 29.0 H Retic Hgb Content 16.5 L Haptoglobin Sodium 144 Potassium 2.9 L Chloride 102 Carbon Dioxide 36 H Anion Gap 6 BUN 13 Creatinine 0.60 L Estim Creat Clear Calc 115 Estimated GFR > 60 Glucose 105 Calcium 9.1 Magnesium 2.5 H Total Bilirubin 0.2 AST 21 ALT 18 Alkaline Phosphatase 91 Total Protein 8.0 Albumin 3.9 Blood Type Antibody Screen Antibody Identification Antigen Identification DISHA, IgG Interpret DISHA, Poly Interpret DISHA, Complement Interp Enhanced Crossmatch
[2024-03-19 05:00] VITALS: BP 144/71; PULSE 70; RESP 20; TEMP 36.8; O2SAT 98
[2024-03-19] MEDS: LEVOTHYROXINE SODIUM 75 MCG TABLET PO (06:23)
[2024-03-19 06:32] LABS: Basophils Absolute Auto 0.1 K/mm3 (0.0-0.1); Basophils Percent Auto 0.5 % (0.2-1.2); Eosinophils Absolute Auto 0.1 K/mm3 (0-0.3); Eosinophils Percent Auto 0.6 % (0-4.4); Hematocrit 25.4 % (37.0-47.0); Hemoglobin 7.3 g/dL (12.0-15.0); Immature Granulocyte Absolute 0.21 K/mm3 (0.00-0.031); Lymphocytes Absolute Auto 9.14 K/mm3 (0.9-3.2); Lymphocytes Percent Auto 42.2 % (18.3-44.2); Mean Corpuscular HGB Conc 28.7 g/dl (32-36); Mean Corpuscular Hemoglobin 20.9 pg (26-34); Mean Corpuscular Volume 72.6 fl (80-100); Mean Platelet Volume 9.2 fl (7.4-10.4); Monocytes Absolute Auto 1.4 K/mm3 (0.1-0.6); Monocytes Percent Auto 6.6 % (2.6-8.5); Neutrophils Absolute Auto 10.6 K/mm3 (1.3-6.7); Neutrophils Percent Auto 49.1 % (45.5-73.1); Nucleated Red Blood Cells Perc 2.5 % (0.0-0.2); Platelet Count Result 653 k/mm3 (150-375); Red Cell Distribution Width 20.7 % (11.5-14.5); White Blood Count 21.7 K/mm3 (4.5-10.0)
[2024-03-19 06:48] LABS: Alanine Aminotransferase 18 U/L (6-35); Albumin Level 3.7 g/dL (3.5-5.1); Alkaline Phosphatase 95 U/L (38-126); Anion Gap 6 mmol/L (4-12); Aspartate Amino Transferase 23 U/L (14-36); Bilirubin,Total 0.4 mg/dL (0.2-1.3); Blood Urea Nitrogen 12 mg/dL (7-17); Calcium 8.8 mg/dL (8.4-10.2); Carbon Dioxide 34 mmol/L (22-30); Chloride 102 mmol/L (98-107); Estimated CRCL calculation 100 ml/min; Estimated Glomerular Filt Rate > 60; Glucose 92 mg/dL (65-110); Magnesium 2.4 mg/dL (1.6-2.3); Sodium 142 mmol/L (137-145)
[2024-03-19 07:11] LABS: Platelet Estimate Increased (Adequate)
[2024-03-19 07:12] LABS: Anisocytosis 2+; Hypochromasia 2+; Microcytosis 1+ (NORMAL); Ovalocytes 1+; Schistocytes Rare; Stomatocytes 1+; Target Cells 1+
[2024-03-19] MEDS: predniSONE 40 MG, predniSONE 10 MG 50 MG PO (08:20)
[2024-03-19] MEDS: hydroCHLOROthiazide 12.5 MG CAPSULE PO (08:20)
[2024-03-19] MEDS: CYANOCOBALAMIN 1,000 MCG TABLET 1000 MCG PO (08:20)
[2024-03-19] MEDS: lisinopriL 10 MG TABLET PO (08:20)
[2024-03-19] MEDS: SERTRALINE HCL 50 MG TABLET 100 MG PO (08:21)
[2024-03-19] MEDS: ASCORBIC ACID 500 MG TABLET PO (09:48)
[2024-03-19 10:30] LABS: Hematocrit 26.4 % (37.0-47.0); Hemoglobin 7.4 g/dL (12.0-15.0)
[2024-03-19 14:00] VITALS: BP 132/74; PULSE 72; RESP 18; TEMP 37.1; O2SAT 100
--- NOTE | 2024-03-19 14:46 | PM.IMPN ---
Progress Note: A&P Assessment and Plan (1) Anemia: Qualifiers: Anemia type: unspecified type Qualified Code(s): D64.9 - Anemia, unspecified Code(s): D64.9 - Anemia, unspecified Status: Acute (2) Autoimmune hemolytic anemia: Code(s): D59.1 - Other autoimmune hemolytic anemias Status: Acute (3) Hypothyroidism: Code(s): E03.9 - Hypothyroidism, unspecified Status: Acute (4) HTN (hypertension): Code(s): I10 - Essential (primary) hypertension Status: Acute (5) Anxiety: Code(s): F41.9 - Anxiety disorder, unspecified Status: Acute Plan Anemia Patient has a history of autoimmune hemolytic anemia Noted that she was to steroids, 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 Also noted bloody stool. Patient relative to other blood products will have in-hospital continue Prednisone Oncology eval noted Hb 7.4, monitor one more night, if stable will discharge tomorrow Iron deficiency Ferritin 7.14, with platelets 726, i-STAT 5 Note a history of bloody stool. s/p 1000/1000mg Possible GI bleed Patient noted bloody stool Along with iron deficient anemia GI bleed highly suspected. Stop Protonix, CT abdomen and pelvis ordered. GI consulted. Hypothyroidism Continue home medications. Hypertension titrate home medication clinical course anxiety continue medications. DVT prophylaxis SCDs no anticoagulation due to GI bleed. Patient is full code Surrogate decision maker is Alvaro ribera Subjective Date/time seen: 03/19/24 14:46 Interval history: Hb 7.4 down from 8.3 Review of Systems Review of Systems: All other systems reviewed and negative except as noted in the history above Exam Narrative: General: alert and comfortable Eyes: EOMI, PERRLA ENNT External ears normal, Neck is supple, no masses, Respiratory systems: Clear to auscultation Cardiovascular S1, S2, normal rhythm, no murmur, rub, or gallop; no thrill or palpable murmurs on palpation. Gastrointestinal: soft, non-tender, and non-distended abdomen with no masses; BS present Skin: no rash, lesions, ulcerations, subcutaneous nodules or induration Musculoskeletal: no abnormality and no tenderness, normal ROM Neurologic: Alert and oriented x3, non focal Mental Status Exam: normal affect Objective Data Vital Signs Vital Signs: Vital Signs - 24 hr 03/18/24 15:23 03/18/24 15:49 03/18/24 15:59 Temperature 98 F Pulse Rate 83 80 78 Respiratory Rate 19 18 19 Blood Pressure 102/55 L 96/36 L 117/57 L Pulse Oximetry 100 100 96 Oxygen Delivery Room Air Room Air 03/18/24 16:09 03/18/24 16:38 03/18/24 20:35 Temperature 96.8 F L 97.6 F Pulse Rate 74 70 75 Respiratory Rate 19 17 18 Blood Pressure 130/64 130/56 L 142/68 H Pulse Oximetry 97 100 99 Oxygen Delivery Room Air 03/19/24 05:00 03/19/24 08:00 Temperature 98.3 F Pulse Rate 70 Respiratory Rate 20 Blood Pressure 144/71 H Pulse Oximetry 98 Oxygen Delivery Room Air Intake/Output Intake/Output: Intake & Output 03/16/24 03/17/24 03/18/24 03/19/24 23:59 23:59 23:59 23:59 Intake Total 1245 2014 1140 Output Total 500 Balance 745 2014 1140 Meds/Results Medications: Active Medications Generic Name Dose Route Start Last Admin Trade Name Freq PRN Reason Stop Dose Admin Alprazolam 0.25 mg 03/17/24 15:58 Alprazolam (*Crx) 0.25 Mg Tablet PO BID PRN Anxiety Ascorbic Acid 500 mg 03/19/24 09:00 03/19/24 09:48 Ascorbic Acid 500 Mg Tablet PO 500 mg DAILY DAPHNE Administration Cyanocobalamin 1,000 mcg 03/18/24 09:00 03/19/24 08:20 Cyanocobalamin 1,000 Mcg Tablet PO 1,000 mcg QAM DAPHNE Administration Hydrochlorothiazide 12.5 mg 03/18/24 09:00 03/19/24 08:20 Hydrochlorothiazide 12.5 Mg Capsule PO 12.5 mg DAILY DAPHNE Administration Levothyroxine Sodium 75 mcg 03/18/24 09:00 03/19/24 06:23 Levothyroxine Sodium 75 Mcg Tablet PO 75 mcg DAILY@0630 DAPHNE Administration Lisinopril 10 mg 03/18/24 09:00 03/19/24 08:20 Lisinopril 10 Mg Tablet PO 10 mg DAILY DAPHNE Administration Prednisone 40 mg/ Prednisone 50 mg 03/17/24 12:30 03/19/24 08:20 10 mg PO 50 mg DAILY@0800 DAPHNE Administration Sertraline HCl 100 mg 03/18/24 09:00 03/19/24 08:21 Sertraline Hcl 50 Mg Tablet PO 100 mg DAILY DAPHNE Administration Radiology Results: ITS Impressions Abdomen/Pelvis CT 03/17/24 15:01 IMPRESSION: 1. Small sliding hiatal hernia. Chest X-Ray 03/18/24 10:50 IMPRESSION: 1. No acute cardiopulmonary disease. Labs Labs: Laboratory Results - last 24 hr 03/16/24 03/18/24 03/19/24 18:55 16:35 06:24 WBC 21.7 H RBC 3.50 L Hgb 8.3 L 7.3 L Hct 29.7 L 25.4 L MCV 72.6 L MCH 20.9 L D MCHC 28.7 L RDW 20.7 H Plt Count 653 H MPV 9.2 Immature Gran % (Auto) 1.0 H Neut % (Auto) 49.1 Lymph % (Auto) 42.2 [place] % (Auto) 6.6 Eos % (Auto) 0.6 Baso % (Auto) 0.5 Lymph # (Auto) 9.14 H [place] # (Auto) 1.4 H Eos # (Auto) 0.1 Baso # (Auto) 0.1 Abs Immat Gran (auto) 0.21 H Absolute Neuts (auto) 10.6 H Absolute Nucleated RBC 0.540 H Nucleated RBC % 2.5 H Platelet Estimate Increased Hypochromasia 2+ Anisocytosis 2+ Microcytosis 1+ Target Cells 1+ Ovalocytes 1+ Stomatocytes 1+ Schistocytes Rare Sodium 142 Potassium 3.0 L Chloride 102 Carbon Dioxide 34 H Anion Gap 6 BUN 12 Creatinine 0.70 Estim Creat Clear Calc 100 Estimated GFR > 60 Glucose 92 Calcium 8.8 Magnesium 2.4 H Total Bilirubin 0.4 AST 23 ALT 18 Alkaline Phosphatase 95 Total Protein 7.0 Albumin 3.7 Enhanced Crossmatch See Detail 03/19/24 10:20 WBC RBC Hgb 7.4 L Hct 26.4 L MCV MCH MCHC RDW Plt Count MPV Immature Gran % (Auto) Neut % (Auto) Lymph % (Auto) [place] % (Auto) Eos % (Auto) Baso % (Auto) Lymph # (Auto) [place] # (Auto) Eos # (Auto) Baso # (Auto) Abs Immat Gran (auto) Absolute Neuts (auto) Absolute Nucleated RBC Nucleated RBC % Platelet Estimate Hypochromasia Anisocytosis Microcytosis Target Cells Ovalocytes Stomatocytes Schistocytes Sodium Potassium Chloride Carbon Dioxide Anion Gap BUN Creatinine Estim Creat Clear Calc Estimated GFR Glucose Calcium Magnesium Total Bilirubin AST ALT Alkaline Phosphatase Total Protein Albumin Enhanced Crossmatch
[2024-03-19 19:45] VITALS: BP 131/60; PULSE 86; RESP 18; TEMP 37.1; O2SAT 96
[2024-03-20 05:25] VITALS: BP 138/65; PULSE 71; RESP 18; TEMP 36.1; O2SAT 100
[2024-03-20] MEDS: LEVOTHYROXINE SODIUM 75 MCG TABLET PO (06:41)
[2024-03-20 06:57] LABS: Hemoglobin 7.1 g/dL (12.0-15.0); Mean Corpuscular HGB Conc 28.4 g/dl (32-36); Mean Corpuscular Hemoglobin 21.1 pg (26-34); Mean Corpuscular Volume 74.2 fl (80-100); Mean Platelet Volume 9.4 fl (7.4-10.4); Platelet Count Result 646 k/mm3 (150-375); Red Blood Count 3.37 M/mm3 (4.2-5.4); Red Cell Distribution Width 21.4 % (11.5-14.5); White Blood Count 22.4 K/mm3 (4.5-10.0)
[2024-03-20 07:26] LABS: Alanine Aminotransferase 17 U/L (6-35); Albumin Level 3.4 g/dL (3.5-5.1); Alkaline Phosphatase 101 U/L (38-126); Anion Gap 6 mmol/L (4-12); Aspartate Amino Transferase 19 U/L (14-36); Bilirubin,Total 0.3 mg/dL (0.2-1.3); Blood Urea Nitrogen 15 mg/dL (7-17); Calcium 8.5 mg/dL (8.4-10.2); Carbon Dioxide 35 mmol/L (22-30); Chloride 102 mmol/L (98-107); Estimated CRCL calculation 100 ml/min; Estimated Glomerular Filt Rate > 60; Glucose 95 mg/dL (65-110); Magnesium 2.3 mg/dL (1.6-2.3); Potassium 2.8 mmol/L (3.4-5.0); Sodium 143 mmol/L (137-145)
[2024-03-20] MEDS: lisinopriL 10 MG TABLET PO (08:24)
[2024-03-20] MEDS: ASCORBIC ACID 500 MG TABLET PO (08:24)
[2024-03-20] MEDS: predniSONE 40 MG, predniSONE 10 MG 50 MG PO (08:24)
[2024-03-20] MEDS: hydroCHLOROthiazide 12.5 MG CAPSULE PO (08:25)
[2024-03-20] MEDS: SERTRALINE HCL 50 MG TABLET 100 MG PO (08:25)
[2024-03-20] MEDS: CYANOCOBALAMIN 1,000 MCG TABLET 1000 MCG PO (08:25)
[2024-03-20] MEDS: POTASSIUM CHLORIDE 20 MEQ ER TABLET 40 MEQ PO (08:25)
[2024-03-20] MEDS: POTASSIUM CHLORIDE INJ 40 MEQ in SODIUM CHLORIDE 0.9% IV 500 ML 130 MEQ IVPB (09:54)
--- NOTE | 2024-03-20 10:43 | PM.IMPN ---
Progress Note: A&P Assessment and Plan (1) Anemia: Qualifiers: Anemia type: unspecified type Qualified Code(s): D64.9 - Anemia, unspecified Code(s): D64.9 - Anemia, unspecified Status: Acute (2) Autoimmune hemolytic anemia: Code(s): D59.1 - Other autoimmune hemolytic anemias Status: Acute (3) Hypothyroidism: Code(s): E03.9 - Hypothyroidism, unspecified Status: Acute (4) HTN (hypertension): Code(s): I10 - Essential (primary) hypertension Status: Acute (5) Anxiety: Code(s): F41.9 - Anxiety disorder, unspecified Status: Acute Plan Anemia Patient has a history of autoimmune hemolytic anemia Noted that she was to steroids, 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 Also noted bloody stool. Patient relative to other blood products will have in-hospital continue Prednisone Oncology eval noted Hb 7.1, repeat CBC 1400 transfuse if hb <7 Iron deficiency Ferritin 7.14, with platelets 726, i-STAT 5 Note a history of bloody stool. s/p 1000/1000mg Possible GI bleed EGD showed gastritis and hiatal hernia Colonoscopy showed hemorrhoids, malanosis coli and no evidence of bleeding GI to schedule outpatient Capsule study Gi following Hypothyroidism Continue home medications. Hypertension titrate home medication clinical course anxiety continue medications. DVT prophylaxis SCDs no anticoagulation due to GI bleed. Patient is full code Surrogate decision maker is Alvaro ribera Subjective Date/time seen: 03/20/24 10:43 Interval history: Hb 7.1 today patient comfortable at bedside Repeat CBC at 1400, tranfuse if hb <7 Review of Systems Review of Systems: All other systems reviewed and negative except as noted in the history above Exam Narrative: General: alert and comfortable Eyes: EOMI, PERRLA ENNT External ears normal, Neck is supple, no masses, Respiratory systems: Clear to auscultation Cardiovascular S1, S2, normal rhythm, no murmur, rub, or gallop; no thrill or palpable murmurs on palpation. Gastrointestinal: soft, non-tender, and non-distended abdomen with no masses; BS present Skin: no rash, lesions, ulcerations, subcutaneous nodules or induration Musculoskeletal: no abnormality and no tenderness, normal ROM Neurologic: Alert and oriented x3, non focal Mental Status Exam: normal affect Objective Data Vital Signs Vital Signs: Vital Signs - 24 hr 03/19/24 14:00 03/19/24 19:45 03/20/24 05:25 Temperature 98.7 F 98.8 F 97 F L Pulse Rate 72 86 71 Respiratory Rate 18 18 18 Blood Pressure 132/74 131/60 138/65 Pulse Oximetry 100 96 100 Intake/Output Intake/Output: Intake & Output 03/17/24 03/18/24 03/19/24 03/20/24 23:59 23:59 23:59 23:59 Intake Total 1245 2014 2220 790 Output Total 500 Balance 745 2014 2220 790 Meds/Results Medications: Active Medications Generic Name Dose Route Start Last Admin Trade Name Freq PRN Reason Stop Dose Admin Alprazolam 0.25 mg 03/17/24 15:58 Alprazolam (*Crx) 0.25 Mg Tablet PO BID PRN Anxiety Ascorbic Acid 500 mg 03/19/24 09:00 03/20/24 08:24 Ascorbic Acid 500 Mg Tablet PO 500 mg DAILY DAPHNE Administration Cyanocobalamin 1,000 mcg 03/18/24 09:00 03/20/24 08:25 Cyanocobalamin 1,000 Mcg Tablet PO 1,000 mcg QAM DAPHNE Administration Hydrochlorothiazide 12.5 mg 03/18/24 09:00 03/20/24 08:25 Hydrochlorothiazide 12.5 Mg Capsule PO 12.5 mg DAILY DAPHNE Administration Potassium Chloride 40 meq/ 520 mls @ 130 mls/hr 03/20/24 08:30 03/20/24 09:54 Sodium Chloride IVPB 03/20/24 12:29 130 mls/hr ONCE ONE Administration Levothyroxine Sodium 75 mcg 03/18/24 09:00 03/20/24 06:41 Levothyroxine Sodium 75 Mcg Tablet PO 75 mcg DAILY@0630 DAPHNE Administration Lisinopril 10 mg 03/18/24 09:00 03/20/24 08:24 Lisinopril 10 Mg Tablet PO 10 mg DAILY DAPHNE Administration Prednisone 40 mg/ Prednisone 50 mg 03/17/24 12:30 03/20/24 08:24 10 mg PO 50 mg DAILY@0800 DAPHNE Administration Sertraline HCl 100 mg 03/18/24 09:00 03/20/24 08:25 Sertraline Hcl 50 Mg Tablet PO 100 mg DAILY DAPHNE Administration Radiology Results: ITS Impressions Abdomen/Pelvis CT 03/17/24 15:01 IMPRESSION: 1. Small sliding hiatal hernia. Chest X-Ray 03/18/24 10:50 IMPRESSION: 1. No acute cardiopulmonary disease. Labs Labs: Laboratory Results - last 24 hr 03/16/24 03/20/24 18:55 06:12 WBC 22.4 H RBC 3.37 L Hgb 7.1 L Hct 25.0 L MCV 74.2 L MCH 21.1 L MCHC 28.4 L RDW 21.4 H Plt Count 646 H MPV 9.4 Sodium 143 Potassium 2.8 L* Chloride 102 Carbon Dioxide 35 H Anion Gap 6 BUN 15 Creatinine 0.70 Estim Creat Clear Calc 100 Estimated GFR > 60 Glucose 95 Calcium 8.5 Magnesium 2.3 Total Bilirubin 0.3 AST 19 ALT 17 Alkaline Phosphatase 101 Total Protein 7.0 Albumin 3.4 L Enhanced Crossmatch See Detail
[2024-03-20 14:00] VITALS: BP 140/60; PULSE 84; RESP 16; TEMP 36.7; O2SAT 96
[2024-03-20 14:44] LABS: Hematocrit 25.8 % (37.0-47.0); Hemoglobin 7.6 g/dL (12.0-15.0); Mean Corpuscular HGB Conc 29.5 g/dl (32-36); Mean Corpuscular Hemoglobin 21.7 pg (26-34); Mean Corpuscular Volume 73.7 fl (80-100); Mean Platelet Volume 9.2 fl (7.4-10.4); Platelet Count Result 661 k/mm3 (150-375); Red Cell Distribution Width 21.6 % (11.5-14.5); White Blood Count 17.2 K/mm3 (4.5-10.0)
[2024-03-20 20:55] VITALS: BP 148/71; PULSE 79; RESP 20; TEMP 37.1; O2SAT 97
--- NOTE | 2024-03-21 01:33 | PC.NURSE ---
Daylight Savings Time For Daylight Savings Time Ending in the Fall - Clocks are moved back. For Daylight Savings Time Beginning in the Spring - Clocks are moved ahead. For [facility], the time of change occurs at 0200 hrs. Time is taken from the server security administrator. This entry on the patient's chart recognizes the change in time reflected during documentation. Example: 2 entries for vital signs may be charted for 0200 hrs.
[2024-03-21 06:00] VITALS: BP 125/77; PULSE 76; RESP 20; TEMP 36.9; O2SAT 99
[2024-03-21] MEDS: LEVOTHYROXINE SODIUM 75 MCG TABLET PO (06:42)
[2024-03-21 07:25] LABS: Hematocrit 27.9 % (37.0-47.0); Hemoglobin 7.8 g/dL (12.0-15.0); Mean Corpuscular Hemoglobin 21.3 pg (26-34); Mean Platelet Volume 9.5 fl (7.4-10.4); Platelet Count Result 674 k/mm3 (150-375); Red Blood Count 3.67 M/mm3 (4.2-5.4); White Blood Count 20.1 K/mm3 (4.5-10.0)
[2024-03-21 08:23] LABS: Alanine Aminotransferase 18 U/L (6-35); Albumin Level 3.8 g/dL (3.5-5.1); Alkaline Phosphatase 97 U/L (38-126); Anion Gap 8 mmol/L (4-12); Aspartate Amino Transferase 22 U/L (14-36); Bilirubin,Total 0.4 mg/dL (0.2-1.3); Blood Urea Nitrogen 13 mg/dL (7-17); Calcium 8.8 mg/dL (8.4-10.2); Carbon Dioxide 34 mmol/L (22-30); Chloride 101 mmol/L (98-107); Estimated CRCL calculation 100 ml/min; Estimated Glomerular Filt Rate > 60; Glucose 91 mg/dL (65-110); Magnesium 2.3 mg/dL (1.6-2.3); Potassium 3.1 mmol/L (3.4-5.0); Sodium 143 mmol/L (137-145)
[2024-03-21 08:28] LABS: Anisocytosis 2+; Band Neutrophils Percent 3 % (0-6); Eosinophils Percent Manual 2 % (0-4); Hypochromasia 2+; Lymphocytes Absolute Manual 5.82 K/mm3 (1.1-4.5); Lymphocytes Percent Manual 29 % (18-44); Monocytes Percent Manual 4 % (3-9); Neutrophils Absolute Manual 13.26 K/mm3 (1.7-7.2); Neutrophils Percent Manual 63 % (46-73); Nucleated Red Blood Cells 3 %; Ovalocytes 1+; Platelet Estimate Increased (Adequate); Target Cells 1+; Total Cells Counted 100
[2024-03-21 08:29] LABS: Schistocytes None Seen
[2024-03-21] MEDS: SERTRALINE HCL 50 MG TABLET 100 MG PO (08:35)
[2024-03-21] MEDS: predniSONE 40 MG, predniSONE 10 MG 50 MG PO (08:35)
[2024-03-21] MEDS: ASCORBIC ACID 500 MG TABLET PO (08:35)
[2024-03-21] MEDS: hydroCHLOROthiazide 12.5 MG CAPSULE PO (08:35)
[2024-03-21] MEDS: lisinopriL 10 MG TABLET PO (08:36)
[2024-03-21] MEDS: CYANOCOBALAMIN 1,000 MCG TABLET 1000 MCG PO (08:36)
--- NOTE | 2024-03-21 13:19 | PM.DS ---
DS: Admitting Diagnosis Discharge Date 03/21/24 Admitting Diagnosis referred to the ER by PCP for low hemoglobin DS: Discharge Diagnosis Discharge Diagnosis (1) Anemia: Qualifiers: Anemia type: unspecified type Qualified Code(s): D64.9 - Anemia, unspecified Code(s): D64.9 - Anemia, unspecified Status: Acute (2) Autoimmune hemolytic anemia: Code(s): D59.1 - Other autoimmune hemolytic anemias Status: Acute DS: Summary Hospital Course Hospital Course: 54 old female past medical history of autoimmune hemolytic anemia, hypothyroidism and hypertension who presented to the ER on recommendation of her primary care physician on account of low blood level. Patient reported she has been having generalized weakness and worsening exertional dyspnea over the [place]. She also reported bloody stool. Denies any chest pain, no diarrhea, no dysuria no focal symptoms no loss of consciousness. Follow with her primary care physician who obtained some blood work and Ariane back yesterday to present to the ER due to low blood level. ER evaluation interval for vital signs stable within normal limits, laparotomy for WBC 16.4, hemoglobin 6.7, platelets 7 2 6, potassium 2.9, ferritin 7.14, isat 5. Blood was typed and cross-matched however patient wanted to have multiple antibodies. Awaiting compatible blood product for transfusion hematology consulted Patient received 1 unit of the least compatible pRBC after evaluated and cleared by hematology. Patient was started on Prednisone 50mg daily. Patient also noted to have iron deficiency and underwent EGD and colonoscopy which showed gastritis and hemorrhoids with no evidence of bleeding. GI recommended capsule study outpatient. Patient already on Omeprazole. received 1000mg IV iron. Hb 7.8 today, stable Hematology recommended prednisone 5mg bid and Vitamin C 500mg daily and follow up outpatietn Patient hb stable and repeat CBC 03/25/24 Patient will Follow up with PCP in 3-5 days, f/u with GI and hematology as instructed Assessment and Plan (1) Anemia: Qualifiers: Anemia type: unspecified type Qualified Code(s): D64.9 - Anemia, unspecified Code(s): D64.9 - Anemia, unspecified Status: Acute (2) Autoimmune hemolytic anemia: Code(s): D59.1 - Other autoimmune hemolytic anemias Status: Acute (3) Hypothyroidism: Code(s): E03.9 - Hypothyroidism, unspecified Status: Acute (4) HTN (hypertension): Code(s): I10 - Essential (primary) hypertension Status: Acute (5) Anxiety: Code(s): F41.9 - Anxiety disorder, unspecified Status: Acute Plan Anemia Patient has a history of autoimmune hemolytic anemia Noted that she was to steroids, 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 Also noted bloody stool. Patient relative to other blood products will have in-hospital continue Prednisone Oncology eval noted Hb 7.1, repeat CBC 1400 transfuse if hb <7 Iron deficiency Ferritin 7.14, with platelets 726, i-STAT 5 Note a history of bloody stool. s/p 1000/1000mg Possible GI bleed EGD showed gastritis and hiatal hernia Colonoscopy showed hemorrhoids, malanosis coli and no evidence of bleeding GI to schedule outpatient Capsule study Gi following Hypothyroidism Continue home medications. Hypertension titrate home medication clinical course anxiety continue medications. Time Spent with Patient Time attestation: Total time spent providing and/or coordinating discharge services: DS: Data Data Completed and Pending Pending studies at discharge: Pending at discharge 03/18/24 15:20 Surgical [PTH] Routine Surgical [PTH] Routine Labs on day of discharge: Labs from last 24 hours 03/21/24 03/20/24 06:45 14:35 WBC 20.1 H 17.2 H RBC 3.67 L 3.50 L Hgb 7.8 L 7.6 L Hct 27.9 L 25.8 L MCV 76.0 L 73.7 L MCH 21.3 L 21.7 L MCHC 28.0 L 29.5 L RDW 23.0 H 21.6 H Plt Count 674 H 661 H MPV 9.5 9.2 Immature Gran % (Auto) Not Reportable Neut % (Auto) Not Reportable Lymph % (Auto) Not Reportable [place] % (Auto) Not Reportable Eos % (Auto) Not Reportable Baso % (Auto) Not Reportable Lymph # (Auto) Not Reportable [place] # (Auto) Not Reportable Eos # (Auto) Not Reportable Baso # (Auto) Not Reportable Abs Immat Gran (auto) Not Reportable Absolute Neuts (auto) Not Reportable Absolute Nucleated RBC Not Reportable Total Counted 100 Neutrophils % (Manual) 63 Band Neutrophils % 3 Lymphocytes % (Manual) 29 Monocytes % (Manual) 4 Eosinophils % (Manual) 2 Nucleated RBC % Not Reportable Abs Neuts (Manual) 13.26 H Abs Lymphs (Manual) 5.82 H Abs Monocytes (Manual) 0.80 Absolute Eos (Manual) 0.40 Nucleated RBCs 3 Platelet Estimate Increased Hypochromasia 2+ Anisocytosis 2+ Target Cells 1+ Ovalocytes 1+ Schistocytes None seen Sodium 143 Potassium 3.1 L Chloride 101 Carbon Dioxide 34 H Anion Gap 8 BUN 13 Creatinine 0.70 Estim Creat Clear Calc 100 Estimated GFR > 60 Glucose 91 Calcium 8.8 Magnesium 2.3 Total Bilirubin 0.4 AST 22 ALT 18 Alkaline Phosphatase 97 Total Protein 8.0 Albumin 3.8 Discharge Plan Discharge Attending physician on discharge: Carmenza Major Consulting providers: Jcarlos Mott Discharging Clinician: Carmenza Major Anticipated Discharge Date/Time: 03/21/24 13:07 Patient Disposition: Home, Self-Care Activity: as tolerated Diet: as tolerated Patient Instructions: Antibiotic Form, Pain Management (DC), Blood Transfusion Reactions (DC), Blood Transfusion (DC) Stand Alone Forms: General Discharge Information Follow-up/Referrals: Jcarlos Mott MD [Physician] - (F/u with hematology as instructed ) Glen Erwin MD [Primary Care Provider] - (F/u with PCP in 3-5 days ) Sharif Cox MD [Physician] - (f/U with GI as instructed ) Discharge Medications: New ascorbic acid (vitamin C) [Vitamin C] 500 mg Tablet 500 mg PO DAILY 30 Days Qty: 30 0RF prednisone 5 mg tablet 5 mg PO BID Qty: 30 0RF Continued sertraline 100 mg Tablet 100 mg PO DAILY omeprazole 40 mg Capsule,Delayed Release(Dr/Ec) 40 mg PO DAILY levothyroxine 75 mcg Tablet 75 mcg PO DAILY alprazolam 0.25 mg Tablet 0.25 mg PO BID PRN (Reason: Anxiety) lisinopril 10 mg Tablet 10 mg PO DAILY hydrochlorothiazide 12.5 mg Tablet 12.5 mg PO DAILY Trulicity 1.5 mg/0.5 mL Pen Injector 1.5 mg SUBCUT WEEKLY Patient Comments: Takes on mondays, missed last dose Date of admission: 03/17/24 18:14 Primary Care Provider: Glen Erwin Admitting Provider: Veronica Jo Attending physician on admission: Carmenza Major Condition: Improved
[2024-03-21 14:00] VITALS: BP 164/74; PULSE 82; RESP 16; TEMP 36.7; O2SAT 97
[2024-03-21] MEDS: INFLUENZA TRIVALENT VACCINE 45 MCG/0.5 ML SYRINGE IM (15:02)
--- NOTE | 2024-03-21 16:37 | PC.NURSE ---
Pt was waiting on ride to
== END 2024-03-21 16:10 | disposition home or self-care (01) | DRG 812 ==
LOC: ANHED 03-17 02:58 → ANH3MEDSUR 03-17 04:22
PROVIDERS: Emergency Medicine; Internal Medicine Gastroenterology; Internal Medicine Hematology & Oncology; Admitting Provider Internal Medicine; Emergency Provider Physician Assistant; PCP Family Medicine; Visit Provider Internal Medicine
PROC: 0DJ08ZZ Inspection of Upper Intestinal Tract, Via Natural or Artificial Opening Endoscopic (ICD-10-PCS; CPT 43235; principal; 2024-03-18 12:30)
DX: D50.9 Iron deficiency anemia, unspecified (principal); D59.10 Autoimmune hemolytic anemia, unspecified; D12.2 Benign neoplasm of ascending colon; D12.8 Benign neoplasm of rectum; K92.1 Melena; K44.9 Diaphragmatic hernia without obstruction or gangrene; K29.30 Chronic superficial gastritis without bleeding; K64.1 Second degree hemorrhoids; K21.9 Gastro-esophageal reflux disease without esophagitis; K63.89 Other specified diseases of intestine; E03.9 Hypothyroidism, unspecified; F41.9 Anxiety disorder, unspecified; I10 Essential (primary) hypertension; Z90.81 Acquired absence of spleen; Z92.21 Personal history of antineoplastic chemotherapy; Z86.718 Personal history of other venous thrombosis and embolism; Z90.49 Acquired absence of other specified parts of digestive tract; Z79.85 Long-term (current) use of injectable non-insulin antidiabetic drugs; Z23 Encounter for immunization
CPT/HCPCS: 36415; 36430; 71045; 74177; 80053; 82607; 82728; 82746; 83010; 83540; 83550; 83615; 83735; 85014; 85018; 85025; 85027; 85046; 86850; 86880; 86900; 86901; 86902; 86922; 88305; 90471; 90656; 96361; 96365; 96366; 99285; A9270; G0008; G0378; J1756; J2003; J2470; J2704; J3480; J7040; J7050; J7120; J7512; P9016; Q9967